=== PATIENT | female | born 1970 | race African-American/Black ===

== ENCOUNTER 2017-12-20 10:55 | Inpatient (IN) | payer OTHER ==
[2017-12-20 11:30] LABS: #Eosinphils 0.1 thou/uL (0.0-0.7); #Lymphocytes 2.7 thou/uL (1.20-3.40); #Monocytes 0.4 thou/uL (0.11-0.59); #Neutrophils 11.1 thou/uL (1.40-6.50); %Basophils 0.1 % (0.0-1.0); %Eosinophils 0.5 % (0.0-10.0); %Lymphocytes 19.1 % (21.0-51.0); %Monocytes 2.5 % (0.0-10.0); %Neutrophils 77.9 % (42.0-75.0); Hemoglobin 13.7 g/dL (12.0-16.0); Mean Corpuscular HGB CONC 32.6 g/dL (32.0-36.0); Mean Corpuscular Hemoglobin 30.4 pg (27.0-31.0); Mean Corpuscular Volume 93.1 fl (81.0-99.0); Mean Platelet Volume 7.3 fL (7.4-10.4); Platelet Count 355 thou/uL (130-400); RBC Distribution Width 11.8 % (11.5-14.5); White Blood Cell (WBC) Count 14.2 thou/uL (4.8-10.8)
[2017-12-20 11:54] LABS: Troponin I 0.015 ng/mL (< 0.028)
[2017-12-20 12:07] LABS: CKMB 7.8 ng/mL (0-6.6)
[2017-12-20 12:25] LABS: ALT (SGPT) 31 U/L (8-55); AST (SGOT) 34 U/L (5-34); Albumin 3.8 g/dL (3.5-5.0); Alkaline Phosphatase 91 U/L (40-150); Anion Gap 13 mmol/L (10-20); BUN (Urea Nitrogen) 9 mg/dL (7.0-18.7); Bilirubin, Total 0.3 mg/dL (0.2-1.2); Calc. Creatinine Clearance 0 mL/min (70-130); Calcium 9.5 mg/dL (7.8-10.44); Carbon Dioxide 25 mmol/L (22-29); Chloride 103 mmol/L (98-107); Estimated GFR-MDRD Greater than 90; Globulin 5.4 g/dL (2.4-3.5); Glucose 89 mg/dL (70-105); Potassium 3.9 mmol/L (3.5-5.1); Protein, Total 9.2 g/dL (6.0-8.3); Sodium 137 mmol/L (136-145)
--- NOTE | 2017-12-20 12:45 | RAD ---
RADIOGRAPH CHEST 2 VIEWS: Date: 12/20/17. Time: 11:49 a.m. HISTORY: A 47-year-old female with dyspnea, chest tightness, and cough. COMPARISON: None available. FINDINGS: There are reticular interstitial densities throughout the bilateral mid and lower lung zones. No ple ural effusion, consolidation, cardiomegaly, mediastinal widening, or pneumothorax. IMPRESSION: Bilateral pulmonary interstitial densities. It is uncertain whether this is chronic or acute. VANI [] POS: [facility]
--- NOTE | 2017-12-20 14:35 | CT ---
CTA THORAX WITH CONTRAST: (Computed Tomographic Angiography, chest(noncoronary) with contrast material, and image post processi ng) (PE protocol) DATE: 12/20/17. HISTORY: A 47-year-old female with 2 months of dyspnea, and recent chest pain. TECHNIQUE: IV injection of iodinated contrast: 100 mL of Isovue 370. Scan acquisition timing attempted to coincide with iodinated contrast bolus reaching maximal density in pulmonary arteries. 3D MIP reconstructions. FINDINGS: Trachea and major bronchi are patent and clear. A large number of enlarged bilateral axillary and venegas bpectoral lymph nodes. No pulmonary thromboembolism. No thoracic aortic aneurysm or dissection. No pleural effusion or pneumothorax. Bilateral subpleural reticular densities throughout the periphery of the bilateral upper lobes, bilateral lower lobes, right middle lobe, and lingula. No honeycombin g or bronchiectasis. This is greatest at the right base. Mild mediastinal lymphadenopathy. No sign ificant hilar lymphadenopathy. The adrenals, pancreas, and spleen are normal. There are a few bilat eral round 2-3 mm renal calculi. IMPRESSION: 1. No pulmonary thromboembolism. 2. Bilateral moderate interstitial infiltrates, with a slightly lower lung zone dominance, and subpl eural dominance right slightly greater than left. It is uncertain whether this represents chronic in terstitial lung disease or an acute or subacute interstitial lung disease. Chronic is favored (pulmo nary fibrosis). 3. Bilateral nephrolithiasis without obstructive uropathy. 4. Bilateral axillary and subpectoral lymphadenopathy, of unknown etiology. eduardo[] POS: [facility]
[2017-12-20] MEDS ORDERED: ISOVUE-370 76%-LOCM 1 ML ONE (15:20)
[2017-12-20] MEDS ORDERED: Ondansetron ODT 4 MG TAB ONE (15:57)
[2017-12-20] MEDS ORDERED: Acetaminophen 500 MG TAB ONE (15:57)
[2017-12-20] MEDS ORDERED: Azithromycin 500 MG VIAL ONE (16:21)
[2017-12-20] MEDS ORDERED: cefTRIAXone\\ROCEPHIN 2 GM VIAL ONE (16:21)
[2017-12-20 16:30] LABS: pH, Arterial 7.45 (7.35-7.45)
[2017-12-20 16:31] LABS: Actual Bicarbonate (HCO3a) 23.5 mEq/L (22-26); Base Excess (BEa) -0.1 mEq/L (0 (+/-) 2.5); CO2 Tension 34.8 mmHg (35.0-45.0); Hemoglobin (Hb) 12.3 g/dL (12.0-16.0); O2 Tension (PaO2) 61.1 mmHg (80.0-100.0)
[2017-12-20 16:32] LABS: Analyzer IN Cardio ER; Calcium, Ionized 1.2 mmol/L (1.12-1.30); Puncture Site LRA
[2017-12-20 16:44] LABS: Lactic Acid 1.5 mmol/L (0.5-2.2)
[2017-12-20] MEDS ORDERED: Piperacillin/Tazobactam 4.5 GM VIAL ONE (17:33)
[2017-12-20] MEDS ORDERED: Clindamycin/D5W 600 mg/50 ml Premix Bag ONE (17:33)
[2017-12-20] MEDS ORDERED: methylPREDNISolone Sod Succ/PF 125 MG/2 ML VIAL ONE (17:40)
[2017-12-20] MEDS ORDERED: HYDROcodone/Acetaminophen 5/325 mg Tablet PO PRN ×2 (18:05)
[2017-12-20] MEDS ORDERED: Acetaminophen 325 MG TAB PO PRN (18:05)
[2017-12-20] MEDS ORDERED: Ondansetron ODT 4 MG TAB SL PRN (18:05)
[2017-12-20] MEDS ORDERED: Ondansetron HCl/PF 4 MG/2 ML Vial IVP PRN (18:05)
[2017-12-20 18:12] VITALS: BMI 21.4
[2017-12-20] MEDS ORDERED: cefTRIAXone\\ROCEPHIN 1 GM in Sodium Chloride 0.9% 100 ML IVPB SCH (20:15)
[2017-12-20] MEDS ORDERED: predniSONE 20 MG TAB PO SCH (20:15)
[2017-12-20] MEDS: Famotidine 40 MG/4 ML VIAL SLOW IVP SCH (21:10)
[2017-12-20] MEDS ORDERED: HYDROcodone/Acetaminophen 5/325 mg Tablet PO SCH (23:00)
--- NOTE | 2017-12-21 01:54 | HP ---
CHIEF COMPLAINT: Shortness of breath. HISTORY OF PRESENT ILLNESS: This is a 47-year-old female with a known history of rheumatoid arthritis and lupus, who presents with a chief complaint of progressive shortness of breath over the last 2 months that has become acutely worse over the last 2-3 days. The patient states that she quit smoking approximately 4 months ago and then approximately 2 months ago, has been having some progressive difficulty with walking up stairs as when she notices that she has shortness of breath. However, in the last few days she has had even worsening shortness of breath with simple activity such as going to the bathroom. This has also been accompanied by frequent coughs that also contributing component of chest pressure and chest pain that has been ongoing for approximately the last week. REVIEW OF SYSTEMS: Constitutional: No recent weight changes that the patient is aware of. No fevers, no chills. HEENT: No new headaches, vision changes, lightheadedness or dizziness. Cardiovascular: Chest pain is described as a pressure, mostly anterior substernal without radiation. It is worse with coughing, but is present even without coughing, when she does cough, the patient also endorses sensations of diaphoresis and palpitations. Respiratory: Shortness of breath as described above, nonproductive cough. Gastrointestinal : Denies any nausea, vomiting, abdominal pain. Denies any issues with diarrhea or constipation. Genitourinary: Denies any dysuria, changes in urinary frequency, color, odor or quantity. Musculoskeletal: No new myalgias or arthralgias. No new issues with her rheumatoid arthritis or lupus. Otherwise, that the patient is aware of. Remainder of the review of systems otherwise negative. PAST MEDICAL HISTORY: As per above. 1. Rheumatoid arthritis. 2. Lupus. 3. The patient states the last time she required any medications for flare up, was approximately 9 months ago for her rheumatoid arthritis. In the past, she has used prednisone, she has used Plaquenil, but she has not used any of those medications within the last 9 months. PAST SURGICAL HISTORY: 1. Status post cholecystectomy 2. Status post hysterectomy for fibroids along with oophorectomy, bilateral. 3. Status post vein removal in her right upper extremity. The patient has a scar line extending from her right wrist to her elbow. She states because she had an IV that infiltrated became severe phlebitis with cellulitis and she had to have Vascular Surgery go in and remove the vein that is why she has that scar. HOME MEDICATIONS: The patient currently does not take any home medications beyond Mobic. ALLERGIES: Includes BUTORPHANOL, FISH CONTAINING PRODUCTS, TORADOL, MORPHINE, and MUSHROOM. FAMILY HISTORY: The patient denies any known family history of cardiovascular disease, pulmonary disease, lupus or rheumatoid arthritis. She thinks that maybe her grandmother might have had rheumatoid arthritis, but not as severe as hers. SOCIAL HISTORY: The patient is currently within the assisted system. Denies any alcohol, tobacco or illicit drug use. Endorses she wishes to be FULL CODE. PHYSICAL EXAMINATION: GENERAL: The patient is awake, alert, and appropriate, in no acute distress, seated in the hospital bed. HEENT: Normocephalic, atraumatic. Moist mucous membranes. Equal ocular motions are intact. Pupils are equal and reactive. No posterior oropharyngeal exudate or erythema. CARDIOVASCULAR: S1, S2. No overt murmurs, rubs or gallops. Pulses 2+ bilateral upper extremity, the patient does appear to have some component of tachycardia, but her rhythm appears to be regular at this point in time. RESPIRATORY: Reasonable air movement. No wheezes, rales or rhonchi, but she does have some perhaps faint crackles throughout. She has marginal air movement , somewhat diminished in her lung sounds. ABDOMEN: Positive bowel sounds, soft, nontender to palpation. NEUROLOGIC: Moving all 4 extremities. Able to self reposition the bed without difficulty or assistance. LABORATORY DATA AND IMAGING: WBC 14.2, hemoglobin 13.7, hematocrit 41.9, platelets 355. D-dimer 1.86. ABG indicates a pH of 7.45, pCO2 of 34.8, pO2 of 61.1. Sodium 137, potassium 3.9, chloride 103, bicarbonate 25, BUN 9, creatinine 0.76, glucose of 89, lactic acid of 1.5, calcium 9.5, total bilirubin 0.3, AST 34, ALT 31, alkaline phosphatase of 91, CK-MB 7.8, troponin 0.015. Total protein 9.2, albumin 3.8. On 12/20/2017, CTA of the chest and thorax. Impression: "No pulmonary thromboembolism. Bilateral moderate interstitial infiltrates with slightly lower lung zone dominance and subpleural dominance right slightly greater than left. It is uncertain whether this represents chronic interstitial lung disease or an acute or subacute interstitial lung disease. Chronic is favored (pulmonary fibrosis). Bilateral nephrolithiasis without obstructive uropathy. Bilateral axillary and subpectoral lymphadenopathy of unknown etiology." ASSESSMENT AND PLAN: This is a 47-year-old female who presents with a complaint of shortness of breath. 1. Shortness of breath with imaging findings concerning for fibrosis. This is certainly a possibility and the patient also presenting with leukocytosis. Unclear, if there is a fixed infectious etiology. She has blood cultures that are pending. We will try to obtain a sputum culture if that is at all possible. Unfortunately, the patient indicates that her cough is mostly nonproductive. Empiric ceftriaxone, empiric azithromycin. We will check a strep urine legionella as well. The patient states that she has been tested with a PPD for TB and this has been negative as the patient is currently in the assisted system. I suspect that this is accurate. DuoNebs and O2 support as needed. We will trial a low dose prednisone in case this is a component of lupus pneumonitis or otherwise related to her autoimmune diseases. 2. Leukocytosis with intermittent tachycardia, heart rate in the 90s. The patient is meeting criteria for systemic inflammatory response syndrome. See discussion above. The patient currently appears to be able to tolerate oral hydration. Could consider IV fluids, if the patient has any decrease in urine output. 3. Rheumatoid arthritis and lupus unless this is involving the lungs appears to be grossly otherwise stable. Admit the patient on an inpatient basis. We will consult Pulmonary. Admit the patient to telemetry. [facility]
[2017-12-21] MEDS ORDERED: Sodium Chloride 0.9% 1,000 ML IV SCH (06:00)
[2017-12-21 06:09] LABS: Anion Gap 10 mmol/L (10-20); BUN (Urea Nitrogen) 11 mg/dL (7.0-18.7); Calc. Creatinine Clearance 95 mL/min (70-130); Calcium 8.7 mg/dL (7.8-10.44); Carbon Dioxide 23 mmol/L (22-29); Chloride 108 mmol/L (98-107); Estimated GFR-MDRD Greater than 90; Glucose 157 mg/dL (70-105); Potassium 4.4 mmol/L (3.5-5.1); Sodium 137 mmol/L (136-145)
[2017-12-21 07:35] LABS: #Lymphocytes 1.7 thou/uL (1.20-3.40); #Monocytes 0.1 thou/uL (0.11-0.59); #Neutrophils 8.8 thou/uL (1.40-6.50); %Basophils 0.3 % (0.0-1.0); %Eosinophils 0.1 % (0.0-10.0); %Lymphocytes 16.1 % (21.0-51.0); %Monocytes 0.7 % (0.0-10.0); %Neutrophils 82.8 % (42.0-75.0); Band 8 % (5-11); Hemoglobin 11.2 g/dL (12.0-16.0); Lymphocytes 8 % (21-51); MDiff Complete? YES; Mean Corpuscular HGB CONC 32.7 g/dL (32.0-36.0); Mean Corpuscular Hemoglobin 30.2 pg (27.0-31.0); Mean Corpuscular Volume 92.3 fl (81.0-99.0); Mean Platelet Volume 7.8 fL (7.4-10.4); Neutrophil 84 % (42-75); Platelet Count 350 thou/uL (130-400); RBC Distribution Width 11.8 % (11.5-14.5); Red Blood Cell (RBC) Count 3.69 mill/uL (4.20-5.40); White Blood Cell (WBC) Count 10.6 thou/uL (4.8-10.8)
[2017-12-21] MEDS: Enoxaparin Sodium 30 MG/0.3 ML SYRINGE SC SCH (08:57)
[2017-12-21] MEDS: predniSONE 20 MG TAB PO SCH (08:57)
--- NOTE | 2017-12-21 09:26 | RAD ---
PORTABLE CHEST: DATE: 12/21/17. PROVIDED CLINICAL HISTORY: Dyspnea. FINDINGS: Comparison is made with the examination performed 12/20/17. Bilateral interstitial opacities are rede monstrated. Left subclavian central line has been placed, the tip of which projects in the region of the cavoatrial junction. No evidence for pneumothorax. IMPRESSION: Interval left-sided central line placement. POS: [facility]
[2017-12-21] MEDS ORDERED: Famotidine 20 MG TAB PO SCH ×2 (09:45→21:00)
[2017-12-21] MEDS ORDERED: Sodium Chloride 0.9% 500 ML IVPB SCH (10:00)
[2017-12-21] MEDS: Famotidine 40 MG/4 ML VIAL SLOW IVP SCH (10:12)
[2017-12-21] MEDS ORDERED: Meloxicam 7.5 MG TAB PO SCH (13:00)
--- NOTE | 2017-12-21 13:23 | PDOC.PN ---
- Subjective Encounter Start Date: 12/21/17 Encounter Start Time: 14:31 CC: fatigue Sub: Pt c/o fatigue - Objective Resuscitation Status: Resuscitation Status FULL:Full Resuscitation Vital Signs & Weight: Vital Signs (12 hours) Temp Pulse Resp BP Pulse Ox 12/21/17 11:58 98.2 F 96 18 100/57 L 97 12/21/17 08:16 97.6 F 77 20 114/65 93 L 12/21/17 04:09 97.9 F 86 18 87/57 L 95 Weight Weight 129 lb 1.6 oz Result Diagrams: 12/21/17 05:00 12/21/17 05:00 Phys Exam - Physical Examination Constitutional: NAD HEENT: moist MMs Neck: no JVD Respiratory: no wheezing, no rales, no rhonchi Cardiovascular: RRR, no significant murmur, no rub Gastrointestinal: soft, non-tender, positive bowel sounds no guarding, no rebound tenderness Musculoskeletal: no edema Neurological: non-focal, moves all 4 limbs Skin: no rash Dx/Plan - Plan Pt is 47 yrs old female now admitted to hospital due to dyspnea 1, Dyspnea: CXR no evidence of infiltrate continue empiric antibiotics 2. Abnormal cardiac enzymes: Will check cardiac enzymes Denies chest pain currently 3. H/O RA: Plan to continue mobic 7.5 mg bid Monitor ccreatinine closely 4. Leukocytosis: WBC count improving Repeat CBC in am Case d/w pt & RN
[2017-12-21 15:19] LABS: CKMB 5.4 ng/mL (0-6.6); Troponin I Less than 0.010 ng/mL (< 0.028)
[2017-12-21] MEDS ORDERED: cefTRIAXone\\ROCEPHIN 1 GM, Syringe 0.4 ML in Sterile Water 9.6 ML SLOW IVP SCH (16:00)
[2017-12-21] MEDS ORDERED: Azithromycin 500 MG in Sodium Chloride 0.9% 250 ML 250 ML IVPB SCH (17:00)
[2017-12-21] MEDS: Meloxicam 7.5 MG TAB PO SCH (20:54)
[2017-12-21] MEDS: Cefdinir 300 MG CAP PO SCH (20:54)
--- NOTE | 2017-12-21 21:09 | RAD ---
RIGHT HAND TWO VIEWS: History: Arthritis and Lupus. FINDINGS/IMPRESSION: Periarticular erosive changes are seen. No acute fracture or dislocation is identified. POS: [facility]
--- NOTE | 2017-12-21 21:12 | RAD ---
LEFT HAND TWO VIEWS: History: Arthritis and lupus. FINDINGS/IMPRESSION: No fracture, dislocation, bony destruction, osteophyte formation or erosive changes are seen. POS: [facility]
--- NOTE | 2017-12-21 21:58 | CON ---
DATE OF CONSULTATION: 12/21/2017 SERVICE: Pulmonary Medicine. REASON FOR CONSULTATION: Abnormal CT of the chest. HISTORY OF PRESENT ILLNESS: The patient is a 47-year-old -[place] female with past medical history significant for systemic lupus erythematosus. She was in her usual state of health with arthralgias that come and go from time to time up until about 3 months ago. She had lower extremity swelling that came on and went away without explanation. She thought it was because she was walking upstairs. She stopped walking upstairs and swelling seemed to dissipate. Either way, she returned to usual state of health with intermittent arthralgias that she was taking Mobic for. She then developed onset of cough, shortness of breath that was slowly progressive over the past 3 weeks. She got to the point where she could not lie down flat and was waking up coughing, choking and gasping in the middle of the night. She has to sit on the side of the bed in order to breathe for a period of 30 minutes, if not longer. She presented to the emergency department. Initial diagnostic studies were performed. There was a fear for pulmonary embolism, prompting a CT PE protocol. This showed interstitial lung infiltrates throughout the periphery of the bilateral lungs. She has some pleuritic chest discomfort, but otherwise has no nausea, vomiting, diarrhea or malaise. She does have arthralgias which predominantly affect the MCPs, PIPs, and wrist. It also involves bilateral knees and intermittently the ankles. Her hips and shoulders certainly are spared. PAST MEDICAL HISTORY: 1. Systemic lupus erythematosus, not currently on disease modifying therapy. 2. Rheumatoid arthritis. PAST SURGICAL HISTORY: 1. Cholecystectomy. 2. Hysterectomy secondary to fibroids with bilateral oophorectomy. 3. Right upper extremity excision of vein. FAMILY HISTORY: She is currently incarcerated. She is in minimum security facility. SOCIAL HISTORY: She denies any current alcohol, tobacco or illicit drug use. She has no exposure to chemicals, dust asbestos or tuberculosis. FAMILY HISTORY: Noncontributory. ALLERGIES: BUTORPHANOL, FISH, TORADOL, MORPHINE, MUSHROOM. MEDICATIONS: List of her inpatient medications was reviewed. A couple of small updates were made. REVIEW OF SYSTEMS: General, head, ears, eyes, nose, throat, cardiovascular, respiratory, GI, , musculoskeletal, neurologic and skin is negative except as mentioned in the HPI. PHYSICAL EXAMINATION: VITAL SIGNS: Afebrile, pulse 96, blood pressure 100/57, respirations 18, saturation 97% on room air. GENERAL: The patient awake, alert, no apparent distress. LUNGS: Bilateral crackles are present. These are fairly extensive. ABDOMEN: Soft, nontender, and nondistended. Bowel sounds are positive. MUSCULOSKELETAL: No cyanosis or clubbing. There is no pitting in the bilateral lower extremities. NEUROLOGIC: Grossly nonfocal. She has diffuse arthralgias present with synovitis. LABORATORY DATA: WBC 10.6, hemoglobin 11.2, platelets 350,000. Neutrophil count is increasing to 83%. D-dimer 1.86. A pH 7.45, pCO2 of 34, PO2 of 61 on room air. Basic metabolic profile and liver function studies were unremarkable. BNP is less than the assay limit of 10. Cardiac enzymes are negative x1. IMAGIN. Chest x-ray demonstrates interstitial changes. There is a left-sided subclavian central venous catheter which terminates in excellent position. 2. CT PE protocol demonstrates no evidence of PE. There is diffuse interstitial fullness throughout the periphery of bilateral lungs. It is more severe in the bibasilar region. There is no honeycombing at this point. Otherwise, I do not see any acute pulmonary process. There is a possible pericardial effusion present. ASSESSMENT: 1. Interstitial lung disease, suspected. 2. Systemic lupus erythematosus. 3. Rheumatoid arthritis. PLAN: We are going to get serologies including an RAS profile, rheumatoid factor, anti-Matilde-1 antibodies, IgG4 subclasses. Antibiotics will be converted over to a p.o. medication. We will limit her to a 5-day course. I really do not think infectious issue is occurring here. We need to continue her prednisone for the supervisor intermediates. She can go out of the hospital on 40 mg of p.o. prednisone on a daily basis. She will need to follow up with me in the outpatient setting, so that we can arrange for her to have pulmonary function studies. Furthermore, she is going to certainly need to see Rheumatology in the outpatient setting, so that she can be started on disease modifying therapy. I will check urinalysis to make certain she does not have significant hematuria. Pulmonary or Critical Care will continue to follow while she remains in this location. Once her chest discomfort starts to neville, she can be considered for transition home. I will get a hand x-rays looking for erosions which would be consistent with rheumatoid arthritis. 70 minutes have been devoted to this patient in various activities. I personally reviewed all imaging studies and laboratory data noted within this document. For fifty percent of this time, I was interacting with the patient at the bedside or coordinating care with the care team. For the remainder of the time I was immediately available to the patient in the hospital unit. [facility]
[2017-12-22 05:37] LABS: #Basophils 0.1 thou/uL (0.0-0.2); #Lymphocytes 2.8 thou/uL (1.20-3.40); #Monocytes 0.7 thou/uL (0.11-0.59); #Neutrophils 14.2 thou/uL (1.40-6.50); %Basophils 0.3 % (0.0-1.0); %Eosinophils 0.1 % (0.0-10.0); %Lymphocytes 15.8 % (21.0-51.0); %Neutrophils 79.7 % (42.0-75.0); Hemoglobin 10.2 g/dL (12.0-16.0); Mean Corpuscular HGB CONC 31.6 g/dL (32.0-36.0); Mean Corpuscular Hemoglobin 29.8 pg (27.0-31.0); Mean Corpuscular Volume 94.2 fl (81.0-99.0); Mean Platelet Volume 7.7 fL (7.4-10.4); Platelet Count 323 thou/uL (130-400); RBC Distribution Width 11.7 % (11.5-14.5); Red Blood Cell (RBC) Count 3.44 mill/uL (4.20-5.40); White Blood Cell (WBC) Count 17.8 thou/uL (4.8-10.8)
[2017-12-22 06:05] LABS: Anion Gap 9 mmol/L (10-20); BUN (Urea Nitrogen) 13 mg/dL (7.0-18.7); Calc. Creatinine Clearance 104 mL/min (70-130); Calcium 8.4 mg/dL (7.8-10.44); Carbon Dioxide 23 mmol/L (22-29); Chloride 111 mmol/L (98-107); Estimated GFR-MDRD Greater than 90; Glucose 102 mg/dL (70-105); Potassium 4.1 mmol/L (3.5-5.1); Sodium 139 mmol/L (136-145)
[2017-12-22] MEDS: predniSONE 20 MG TAB PO SCH (08:55)
[2017-12-22] MEDS: Cefdinir 300 MG CAP PO SCH ×2 (08:56→20:15)
[2017-12-22] MEDS: Meloxicam 7.5 MG TAB PO SCH ×2 (08:56→20:15)
[2017-12-22] MEDS: Furosemide 20 MG TAB PO SCH (08:56)
[2017-12-22] MEDS: Ferrous Gluconate 324 MG TAB PO SCH (08:57)
[2017-12-22] MEDS: Azithromycin 250 MG TAB PO SCH (08:58)
[2017-12-22] MEDS: Enoxaparin Sodium 30 MG/0.3 ML SYRINGE SC SCH (09:01)
[2017-12-22 12:54] LABS: EliA RAS New Method **** NEW METHOD ****; Jo-1 IgG Antibody Less than 0.3 EliAU/mL (<7 Negative)
--- NOTE | 2017-12-22 14:19 | PDOC.PN ---
- Subjective Encounter Start Date: 12/22/17 Encounter Start Time: 14:00 Subjective: f/u for cough and dyspnea and suspected interstitial lung disease of SLE -: on Prednisone, Omnicef and Zithromax. Some improvement in cough -: but SOB when ambulating. No fever, chills. - Objective Resuscitation Status: Resuscitation Status FULL:Full Resuscitation MAR Reviewed: Yes Vital Signs & Weight: Vital Signs (12 hours) Temp Pulse Resp BP Pulse Ox 12/22/17 12:00 84 18 97/59 L 98 12/22/17 11:03 99 12/22/17 08:51 98.5 F 85 18 102/55 L 99 12/22/17 08:00 98.5 F 85 18 99 12/22/17 04:00 98.3 F 70 18 95/54 L 95 Weight Weight 131 lb 14.4 oz I&O: 12/21/17 12/22/17 12/23/17 06:59 06:59 06:59 Intake Total 980 Balance 980 Result Diagrams: 12/22/17 05:13 12/22/17 05:13 Additional Labs: Laboratory Tests 12/22/17 05:13 Rheumatoid Factor IgA 34.0 H Rheumatoid Factor IgM 103.0 H Cycl Citrul Peptide IgG 1.0 JANET-1 IgG Antibody Less than 0.3 Radiology Reviewed by me: Yes (2D echo - EF 55%, diast dysfxn) EKG Reviewed by me: Yes (Tele - SR) Phys Exam - Physical Examination Constitutional: NAD HEENT: PERRLA, moist MMs, sclera anicteric, oral pharynx no lesions Neck: no nodes, no JVD, supple exp wheezes good airflow otherwise in bases Respiratory: no rales, no rhonchi S1, S2 Cardiovascular: RRR, no significant murmur, no rub, gallop Gastrointestinal: soft, non-tender, no distention, positive bowel sounds Musculoskeletal: no edema, pulses present Neurological: non-focal, normal sensation, moves all 4 limbs Psychiatric: normal affect, A&O x 3 Skin: no rash, normal turgor, cap refill <2 seconds Dx/Plan (1) Dyspnea Code(s): R06.00 - DYSPNEA, UNSPECIFIED Status: Acute Qualifiers: Dyspnea type: dyspnea on exertion Qualified Code(s): R06.09 - Other forms of dyspnea Comment: Likely due to ILD of SLE, continue Prednisone 40mg daily (2) Interstitial lung disease Code(s): J84.9 - INTERSTITIAL PULMONARY DISEASE, UNSPECIFIED Status: Acute Comment: Continue Prednisone, will continue outpt work up including PFT's, add ProAir HFA 2puffs QID (3) SLE (systemic lupus erythematosus) Code(s): M32.9 - SYSTEMIC LUPUS ERYTHEMATOSUS, UNSPECIFIED Status: Chronic Comment: See above for mgmt, outpt for fpc mgmt (4) Rheumatoid arthritis Code(s): M06.9 - RHEUMATOID ARTHRITIS, UNSPECIFIED Status: Chronic Qualifiers: Rheumatoid arthritis location: hand Laterality: right Comment: continue Prednisone 40mg daily, Mobic 7.5mg BID - Plan continue antibiotics, executive secretary social welfare, out of bed/ambulate, DVT proph w/SCDs Stable overall -: Continue Prednisone 40mg po daily -: Add Albuterol MDI 2puffs q6h -: Continue Mobic 7.5mg BID -: OOB/ambulate * Continue Omnicef 300mg BID * AM lab: BMP, CBC
--- NOTE | 2017-12-22 16:11 | PRG ---
DATE OF SERVICE: 12/22/2017 SERVICE: Pulmonary medicine. INTERVAL HISTORY: The patient is doing fine from a cardiovascular and respiratory standpoint. Her arthralgias are much better. That being said, she continues to have dyspnea with exertion. This truthfully is unexpected. Typically with steroids, it takes a couple of days, if not weeks for the difficulty breathing to get better. Otherwise, there have been no interval events. PHYSICAL EXAMINATION: VITAL SIGNS: Afebrile, pulse 84, blood pressure 102/55, respirations 18, saturation 98% on room air. GENERAL: The patient is awake and alert. No apparent distress. LUNGS: Excellent air entry with no prolonged expiratory phase or wheezing. Crackles are present throughout bilateral lung cruz. HEART: Normal rate and regular. ABDOMEN: Soft, nontender, nondistended. Bowel sounds positive. MUSCULOSKELETAL: No cyanosis or clubbing. There is no pitting in the bilateral lower extremities. NEUROLOGIC: Grossly nonfocal. LABORATORY DATA: WBC 17.8, hemoglobin 10.2, and platelets 323,000. Neutrophil count is 79%. Basic metabolic profile is essentially unremarkable. Troponin 0.01 and down trending. Rheumatoid factor is elevated, unremarkable. RAS profile and other studies are currently pending. IMAGIN. Echocardiogram demonstrates diastolic dysfunction with a normal ejection fraction. No significant pericardial effusion is evident. 2. Hand x-rays demonstrate bony erosions consistent with inflammatory arthritis. ASSESSMENT: 1. Systemic lupus erythematosus. 2. Rheumatoid arthritis. 3. Interstitial lung disease. 4. Chronic hypoxic respiratory failure, suspected. 5. Community acquired pneumonia, unlikely. PLAN: Antibiotics can be discontinued after 5 days. We will continue steroids indefinitely. At this point, she will need to be discharged from the hospital on 40 mg of steroids on a daily basis. She will need to sleep on a wedge for the rest of her life and we will need a prescription for this on discharge from the hospital. She will need to follow up with Rheumatology just as soon as possible. I would recommend that she see Dr. Garza at [facility]. She is in desperate need of disease modifying therapy for both rheumatoid arthritis and systemic lupus erythematosus. I would like for her to follow up with me in the outpatient setting, so that we can get pulmonary function studies, to follow stability of her lung process through time. [facility]
[2017-12-22] MEDS ORDERED: Fentanyl 100 MCG/2 ML VIAL SLOW IVP PRN (18:29)
[2017-12-22] MEDS ORDERED: Fentanyl 100 MCG/2 ML VIAL SLOW IVP SCH (18:30)
[2017-12-22] MEDS: Sodium Chloride 0.9% 1,000 ML IV SCH (18:41)
[2017-12-22 18:42] LABS: Bilirubin Negative (Negative); Blood, Urine Negative (Negative); Clarity CLEAR (Clear); Glucose, Urine (Dipstick) Negative (Negative); Leukocyte Negative (Negative); Nitrite Negative (Negative); Protein, Urine (Dipstick) Negative (Neg-Trace); Specific Gravity, Urine 1.017 (1.002-1.036); Urobilinogen 0.2 mg/dL (0.2-1.0)
[2017-12-22 18:45] LABS: Bacteria/HPF None Seen HPF (None Seen); Hyaline Casts/LPF 0-3 HYALINE CAST LPF (0-3 Hyaline); Pathc Cast-AUWi Flag 0.14 (0-2.49); RBC/HPF 0-3 HPF (0-3); Squamous Epithelial 0-3 HPF (0-3); WBC/HPF None Seen HPF (0-3)
[2017-12-22] MEDS: PROVENTIL INHALER 6.7 G (200 INHALATIONS) INH SCH (19:56)
[2017-12-22] MEDS ORDERED: Promethazine HCl 25 MG in Sodium Chloride 0.9% 50 ML IVPB SCH (20:30)
--- NOTE | 2017-12-22 22:34 | CT ---
CT ABDOMEN AND PELVIS WITHOUT CONTRAST: 12/22/2017 HISTORY: Right-sided flank pain. Assess for obstructive uropathy. COMPARISON: None. TECHNIQUE: Serial axial CT imaging obtained at 5 mm intervals, from the lung bases through the pubic symphysis, without contrast. Coronal reformatted imaging obtained. FINDINGS: The lack of contrast media limits assessment of the viscera, bowel, and vascular structures and for l ymphadenopathy. Increased coarse linear interstitial densities are noted peripherally, within both lung bases. No free intraperitoneal air, or fluid noted. Post cholecystectomy clips are present. The liver, spleen, pancreas, and adrenal glands are unremarkable. There are bilateral intrarenal calculi. On the left, there are at least five nonobstructing intraren al calculi, measuring up to 3 mm. There is a mid pole, nonobstructing, right renal stone, measuring 4 mm. There is no hydronephrosis s een on either side. There are two calcifications along the course of the right ureter, anterior to the right psoas muscle , best seen on axial image 55, significance uncertain. The medial of these two calcifications demons trate central lucency, suggesting phlebolith. Lateral of these two calcifications measures up to 4 m m and could be within the ureter. However, this could also be vascular in nature, as there is no kemi dence for hydroureter or hydronephrosis. If there is high clinical concern for obstructive uropathy on the right, follow-up imaging with contrast, using a CT urogram, is recommended. Limited evaluation of the bowel demonstrates prominent stool throughout the colon. Punctate foci of subcutaneous gas noted within the fat of the anterior abdomen, on the right, suggesting subcutaneous injections. IMPRESSION: Bilateral intrarenal calculi, left more numerous than right. No hydronephrosis or hydroureter. Calc ification seen along the course of the mid right ureter, which is difficult to accurately locate but is probably vascular in nature, given lack of hydronephrosis/hydroureteronephrosis). Of there is hig h clinical concern for obstructive uropathy, however, CT urogram is advised for full assessment. POS: [facility]
[2017-12-23] MEDS: PROVENTIL INHALER 6.7 G (200 INHALATIONS) INH SCH ×4 (00:58→19:32)
[2017-12-23 05:55] LABS: #Basophils 0.1 thou/uL (0.0-0.2); #Lymphocytes 3.5 thou/uL (1.20-3.40); #Monocytes 0.8 thou/uL (0.11-0.59); #Neutrophils 9.6 thou/uL (1.40-6.50); %Basophils 0.4 % (0.0-1.0); %Eosinophils 0.2 % (0.0-10.0); %Lymphocytes 24.8 % (21.0-51.0); %Monocytes 5.7 % (0.0-10.0); %Neutrophils 68.9 % (42.0-75.0); Hemoglobin 10.3 g/dL (12.0-16.0); Mean Corpuscular HGB CONC 31.6 g/dL (32.0-36.0); Mean Corpuscular Hemoglobin 29.8 pg (27.0-31.0); Mean Corpuscular Volume 94.3 fl (81.0-99.0); Mean Platelet Volume 7.4 fL (7.4-10.4); Platelet Count 315 thou/uL (130-400); RBC Distribution Width 11.7 % (11.5-14.5); Red Blood Cell (RBC) Count 3.47 mill/uL (4.20-5.40)
[2017-12-23] MEDS: Sodium Chloride 0.9% 1,000 ML IV SCH ×3 (06:11→12:20)
[2017-12-23 06:28] LABS: Anion Gap 10 mmol/L (10-20); BUN (Urea Nitrogen) 14 mg/dL (7.0-18.7); Calc. Creatinine Clearance 109 mL/min (70-130); Calcium 7.9 mg/dL (7.8-10.44); Carbon Dioxide 19 mmol/L (22-29); Chloride 115 mmol/L (98-107); Estimated GFR-MDRD Greater than 90; Glucose 82 mg/dL (70-105); Potassium 4.1 mmol/L (3.5-5.1); Sodium 140 mmol/L (136-145)
[2017-12-23] MEDS: Furosemide 20 MG TAB PO SCH (08:20)
[2017-12-23] MEDS: Cefdinir 300 MG CAP PO SCH ×2 (08:21→20:07)
[2017-12-23] MEDS: predniSONE 20 MG TAB PO SCH (08:21)
[2017-12-23] MEDS: Ferrous Gluconate 324 MG TAB PO SCH (08:21)
[2017-12-23] MEDS: Meloxicam 7.5 MG TAB PO SCH ×2 (08:21→20:07)
[2017-12-23] MEDS: Azithromycin 250 MG TAB PO SCH (08:21)
[2017-12-23] MEDS: Enoxaparin Sodium 30 MG/0.3 ML SYRINGE SC SCH (08:22)
[2017-12-23] MEDS ORDERED: Acetaminophen 500 MG TAB PO PRN (11:05)
--- NOTE | 2017-12-23 16:23 | PRG ---
DATE OF SERVICE: 12/23/2017 SERVICE: Pulmonary Medicine. INTERVAL HISTORY: The patient is doing fine from a respiratory standpoint. She continues to cough a little bit. It seems that dyspnea is easing up ever so slightly. Otherwise, there has been no grimm ge to her condition. PHYSICAL EXAMINATION: VITAL SIGNS: Afebrile, pulse 87, blood pressure 94/51, respirations 16, saturation 96% on room air. GENERAL: The patient is awake and alert, in no apparent distress. LUNGS: Bilateral crackles are present. No prolonged expiratory phase or wheezing. HEART: Normal rate and regular. ABDOMEN: Soft, nontender, nondistended. Bowel sounds are positive. MUSCULOSKELETAL: No cyanosis or clubbing. No pitting in the bilateral lower extremities. NEUROLOGIC: Grossly nonfocal. LABORATORY DATA: WBC 14.0, hemoglobin 10.3, and platelets 315,000. Chloride 115, sodium 140. Basic metabolic profile is otherwise unremarkable. ASSESSMENT: 1. Systemic lupus erythematosus. 2. Rheumatoid arthritis. 3. Interstitial lung disease. 4. Chronic hypoxic respiratory failure, suspected. 5. Community-acquired pneumonia, unlikely. PLAN: We will stop her antibiotics after 5 days. The steroids will be continued on discharge from [facility] at 40 mg, indefinitely until she can get in with Rheumatology and get on disease modifyin g therapy. I have return to clinic to see me in 2-4 weeks in the outpatient setting, so that we can establish baseline pulmonary function studies on her. We will be able to follow this through time to see whether or not she progresses. If she does, an open lung biopsy would be indicated. Pulmonary or Critical Care will continue to follow along for the time being.
--- NOTE | 2017-12-23 18:26 | PDOC.PN ---
- Subjective Encounter Start Date: 12/23/17 Encounter Start Time: 18:20 Subjective: f/u dyspnea and cough suspected ILD of SLE on Prednisone, Omnicef -: and Zithromax. Ambulated in halls with some dyspnea. Appetite good. -: Voiding regularly. - Objective Resuscitation Status: Resuscitation Status FULL:Full Resuscitation MAR Reviewed: Yes Vital Signs & Weight: Vital Signs (12 hours) Temp Pulse Resp BP Pulse Ox 12/23/17 17:30 98.3 F 86 17 112/63 97 12/23/17 12:24 76 12 12/23/17 12:18 98.5 F 87 16 94/51 L 96 12/23/17 08:15 98.2 F 73 16 106/65 97 12/23/17 07:31 97 12/23/17 07:29 72 12 Weight Weight 131 lb 11.2 oz I&O: 12/22/17 12/23/17 12/24/17 06:59 06:59 06:59 Intake Total 980 1250 2198 Output Total 550 400 Balance 686 102 2592 Result Diagrams: 12/23/17 05:45 12/23/17 05:45 Additional Labs: Laboratory Tests 12/22/17 12/22/17 05:13 05:13 WBC 17.8 H Hgb 10.2 L Neutrophils % 79.7 H Rheumatoid Factor IgA 34.0 H Rheumatoid Factor IgM 103.0 H Cycl Citrul Peptide IgG 1.0 JANET-1 IgG Antibody Less than 0.3 Radiology Reviewed by me: Yes (CT abd - bilat renal calculi, no obstruction or hydronephrosis) EKG Reviewed by me: Yes (Tele - SR) Phys Exam - Physical Examination Constitutional: NAD alert, responsive HEENT: PERRLA, moist MMs, sclera anicteric, oral pharynx no lesions Neck: no nodes, no JVD, supple scattered rhonchi Respiratory: no rales S1, S2 Cardiovascular: RRR, no significant murmur, no rub, gallop Gastrointestinal: soft, non-tender, no distention, positive bowel sounds Musculoskeletal: no edema, pulses present Neurological: non-focal, normal sensation, moves all 4 limbs Psychiatric: normal affect, A&O x 3 Skin: no rash, normal turgor, cap refill <2 seconds Dx/Plan (1) Dyspnea Code(s): R06.00 - DYSPNEA, UNSPECIFIED Status: Acute Qualifiers: Dyspnea type: dyspnea on exertion Qualified Code(s): R06.09 - Other forms of dyspnea Comment: Likely due to ILD of SLE, continue Prednisone 40mg daily, Albuterol nebs (2) Interstitial lung disease Code(s): J84.9 - INTERSTITIAL PULMONARY DISEASE, UNSPECIFIED Status: Acute Comment: Continue Prednisone, will continue outpt work up including PFT's, add ProAir HFA 2puffs QID (3) SLE (systemic lupus erythematosus) Code(s): M32.9 - SYSTEMIC LUPUS ERYTHEMATOSUS, UNSPECIFIED Status: Chronic Comment: See above for mgmt, outpt for long-term mgmt (4) Rheumatoid arthritis Code(s): M06.9 - RHEUMATOID ARTHRITIS, UNSPECIFIED Status: Chronic Qualifiers: Rheumatoid arthritis location: hand Laterality: right Comment: continue Prednisone 40mg daily, Mobic 7.5mg BID - Plan continue antibiotics, PT/OT, director of social services, out of bed/ambulate, DVT proph w/ SCDs Stable overall -: Continue Prednisone 40mg po daily -: Continue Omnicef and Zithromax -: Continue Mobic 7.5mg BID -: Likely d/c in 24-48h * AM lab: CBC
[2017-12-24] MEDS: PROVENTIL INHALER 6.7 G (200 INHALATIONS) INH SCH ×4 (01:25→18:53)
[2017-12-24 05:57] LABS: Hemoglobin 10.4 g/dL (12.0-16.0); Lymphocytes 34 % (21-51); MDiff Complete? YES; Mean Corpuscular HGB CONC 32.5 g/dL (32.0-36.0); Mean Corpuscular Hemoglobin 30.4 pg (27.0-31.0); Mean Corpuscular Volume 93.7 fl (81.0-99.0); Mean Platelet Volume 7.7 fL (7.4-10.4); Monocytes 5 % (0-10); Neutrophil 61 % (42-75); Platelet Count 323 thou/uL (130-400); RBC Distribution Width 11.8 % (11.5-14.5); Red Blood Cell (RBC) Count 3.42 mill/uL (4.20-5.40); White Blood Cell (WBC) Count 12.9 thou/uL (4.8-10.8)
[2017-12-24] MEDS: Enoxaparin Sodium 30 MG/0.3 ML SYRINGE SC SCH (07:53)
[2017-12-24] MEDS: Cefdinir 300 MG CAP PO SCH ×2 (07:54→20:49)
[2017-12-24] MEDS: Azithromycin 250 MG TAB PO SCH (07:54)
[2017-12-24] MEDS: Furosemide 20 MG TAB PO SCH (07:54)
[2017-12-24] MEDS: Meloxicam 7.5 MG TAB PO SCH ×2 (07:54→20:49)
[2017-12-24] MEDS: predniSONE 20 MG TAB PO SCH (07:54)
[2017-12-24] MEDS: Ferrous Gluconate 324 MG TAB PO SCH (07:55)
[2017-12-24] MEDS: diphenhydrAMINE 50 MG/ML VIAL IVP PRN (09:14)
[2017-12-24] MEDS: Famotidine 40 MG/4 ML VIAL SLOW IVP SCH ×2 (09:39→20:47)
[2017-12-24 14:28] LABS: IgG Subclass 1 1086 mg/dL (248-810); IgG Subclass 2 268 mg/dL (130-555); IgG Subclass 3 156 mg/dL (15-102); IgG Subclass 4 58 mg/dL (2-96); Immunoglobulin - G (Sendout) 1481 mg/dL (700-1600)
--- NOTE | 2017-12-24 18:12 | PDOC.PN ---
- Subjective Encounter Start Date: 12/24/17 Encounter Start Time: 18:10 Subjective: f/u for dyspnea and cough suspected ILD in context of SLE on Omnicef -: and Prednisone. Less SOB today and minimal cough. Had allergic rxn -: this am but resolved quickly with Benadryl. - Objective Resuscitation Status: Resuscitation Status FULL:Full Resuscitation MAR Reviewed: Yes Vital Signs & Weight: Vital Signs (12 hours) Temp Pulse Resp BP Pulse Ox 12/24/17 16:39 98.2 F 82 15 100/59 L 96 12/24/17 12:28 98.3 F 91 16 103/57 L 95 12/24/17 12:09 106 H 16 99 12/24/17 07:51 98.2 F 82 15 111/66 96 12/24/17 06:50 69 16 97 Weight Weight 135 lb I&O: 12/23/17 12/24/17 12/25/17 06:59 06:59 06:59 Intake Total 1250 2198 Output Total 550 400 Balance 700 1798 Result Diagrams: 12/24/17 04:25 12/23/17 05:45 Additional Labs: Laboratory Tests 12/22/17 12/22/17 05:13 05:13 WBC 17.8 H Hgb 10.2 L Neutrophils % 79.7 H Rheumatoid Factor IgA 34.0 H Rheumatoid Factor IgM 103.0 H Cycl Citrul Peptide IgG 1.0 JANET-1 IgG Antibody Less than 0.3 EKG Reviewed by me: Yes (Tele - SR) Phys Exam - Physical Examination Constitutional: NAD HEENT: PERRLA, moist MMs, sclera anicteric, oral pharynx no lesions Neck: no nodes, no JVD, supple Respiratory: no wheezing, no rales, no rhonchi, clear to auscultation bilateral S1, S2 Cardiovascular: RRR, no significant murmur, no rub, gallop Gastrointestinal: soft, non-tender, no distention, positive bowel sounds Musculoskeletal: no edema, pulses present Neurological: non-focal, normal sensation, moves all 4 limbs Psychiatric: normal affect, A&O x 3 Skin: no rash, normal turgor, cap refill <2 seconds Dx/Plan (1) Dyspnea Code(s): R06.00 - DYSPNEA, UNSPECIFIED Status: Acute Qualifiers: Dyspnea type: dyspnea on exertion Qualified Code(s): R06.09 - Other forms of dyspnea Comment: Likely due to ILD of SLE, continue Prednisone 40mg daily, Albuterol nebs (2) Interstitial lung disease Code(s): J84.9 - INTERSTITIAL PULMONARY DISEASE, UNSPECIFIED Status: Acute Comment: Continue Prednisone, will continue outpt work up including PFT's, add ProAir HFA 2puffs QID (3) SLE (systemic lupus erythematosus) Code(s): M32.9 - SYSTEMIC LUPUS ERYTHEMATOSUS, UNSPECIFIED Status: Chronic Comment: See above for mgmt, outpt for [facility] mgmt (4) Rheumatoid arthritis Code(s): M06.9 - RHEUMATOID ARTHRITIS, UNSPECIFIED Status: Chronic Qualifiers: Rheumatoid arthritis location: hand Laterality: right Comment: continue Prednisone 40mg daily, Mobic 7.5mg BID - Plan continue antibiotics, social studies department chair, out of bed/ambulate, DVT proph w/SCDs Stable overall -: Continue Omnicef 300mg dialy -: Continue Prednisone 40mg daily -: OOB/ambulate -: D/C Lasix * Likely d/c in am * AM lab: CBC
[2017-12-24] MEDS ORDERED: traMADol HCl 50 MG TAB PO SCH (22:15)
[2017-12-25] MEDS: PROVENTIL INHALER 6.7 G (200 INHALATIONS) INH SCH ×3 (00:55→13:20)
[2017-12-25] MEDS ORDERED: Melatonin 3 MG TAB PO SCH (02:00)
[2017-12-25] MEDS: diphenhydrAMINE 50 MG/ML VIAL IVP PRN ×2 (03:47→10:19)
[2017-12-25 05:36] LABS: Band 4 % (5-11); Hemoglobin 11.4 g/dL (12.0-16.0); Lymphocytes 36 % (21-51); MDiff Complete? YES; Mean Corpuscular HGB CONC 31.5 g/dL (32.0-36.0); Mean Corpuscular Hemoglobin 29.6 pg (27.0-31.0); Mean Corpuscular Volume 93.9 fl (81.0-99.0); Mean Platelet Volume 7.8 fL (7.4-10.4); Monocytes 2 % (0-10); Neutrophil 58 % (42-75); PLT Morphology Comment Appears Adequate; Platelet Count 346 thou/uL (130-400); RBC Distribution Width 11.9 % (11.5-14.5); Red Blood Cell (RBC) Count 3.86 mill/uL (4.20-5.40); White Blood Cell (WBC) Count 14.4 thou/uL (4.8-10.8)
[2017-12-25] MEDS: Meloxicam 7.5 MG TAB PO SCH (08:45)
[2017-12-25] MEDS: predniSONE 20 MG TAB PO SCH (08:45)
[2017-12-25] MEDS: Cefdinir 300 MG CAP PO SCH (08:45)
[2017-12-25] MEDS: Ferrous Gluconate 324 MG TAB PO SCH (08:45)
[2017-12-25] MEDS: Famotidine 40 MG/4 ML VIAL SLOW IVP SCH (10:17)
--- NOTE | 2017-12-25 11:09 | DIS ---
DATE OF ADMISSION: 12/20/2017 DATE OF DISCHARGE: 12/25/2017 DISCHARGE DIAGNOSES: 1. Dyspnea, multifactorial, improved. 2. Interstitial lung disease, suspected, questionable secondary to systemic lupus erythematosus. 3. Systemic lupus erythematosus. 4. Rheumatoid arthritis. CONSULTATIONS: Dr. Nieves with Pulmonology Service. PERTINENT LABORATORY DATA AND X-RAY FINDINGS: Basic metabolic profile within normal limits. LFTs wi thin normal limits. BNP less than 10. Albumin 3.8. CBC showed a white blood cell count ranging bet ween 10.6-17.8, hemoglobin ranged between 10.2-13.7. Rheumatoid factor IgA 34. Rheumatoid factor Ig M 103. RAS screen pending. Portable chest x-ray dated 12/20/2017 showed bilateral pulmonary interst itial changes. CT angiogram of the chest dated 12/20/2017 showed no evidence for pulmonary embolus. Bilateral interstitial infiltrates with lower lung zone predominance. Question of chronic interstit ial lung disease. Bilateral nephrolithiasis without obstructive uropathy. Portable chest x-ray date d 12/21/2017 showed interval left-sided central line catheter placement. Two views of the right hand dated 12/21/2017 showed periarticular erosive changes consistent with rheumatoid arthritis. A 2D tr ansthoracic echocardiogram dated 12/21/2017 showed ejection fraction of 50%-55%. Diastolic dysfuncti on. CT of the abdomen and pelvis dated 12/22/2017 showed bilateral intrarenal calculi, left greater than right. No associated hydronephrosis or hydroureter. HOSPITAL COURSE: Patient was admitted to the telemetry unit after initially presenting with progress traci shortness of breath in the context of systemic lupus erythematosus and rheumatoid arthritis. [facility] imaging showed interstitial changes, questionable acute/subacute versus chronic changes. The terry ent was initially empirically managed with IV Rocephin and Zithromax as well as prednisone. The terry ent was evaluated by the Pulmonology Service due to the radiographic changes noted on lung imaging. The patient underwent evaluation including RAS profile and rheumatoid factor with positive rheumatoid factor as stated previously. The patient continued on prednisone 40 mg daily with recommendations t o continue indefinitely until consideration for rheumatological follow up in the outpatient setting w ith potential disease modifying therapy. The patient was slow to clinically improve and was placed o n bronchodilator therapy with albuterol. The patient did exhibit allergic reaction suspected seconda rily to antibiotic exposure treated with Benadryl and Pepcid resolving without further sequela. The patient remained on room air with O2 saturations in the upper 90% range. Patient ambulatory without assistance or difficulty, tolerating regular oral intake, and voiding appropriately. I have examined the patient at the time of discharge and discussed the followup instructions and pertinent findings of the lab and x-ray studies. The patient verbalized understanding and agreement for followup. The patient is overall clinically stable and ready for discharge on 12/25/2017. DISCHARGE MEDICATIONS: 1. Proventil HFA 2 puffs inhaled q.6 hours p.r.n. 2. Omnicef 300 mg p.o. b.i.d. x5 days. 3. Iron 36 mg p.o. daily. 4. Mobic 7.5 mg p.o. daily. 5. Prednisone 40 mg p.o. q.a.m. FOLLOWUP: The patient to follow up with her medical services at halfway. The patient may also follow up with Dr. Nieves with Pulmonology Service 2-3 weeks after discharge. CONDITION ON DISCHARGE: Stable. ACTIVITY: ad aliya. SPECIAL INSTRUCTIONS: Recommend a Rheumatology referral and followup after discharge. DIET: Regular. CODE STATUS: FULL. DISPOSITION: Home, 12/25/2017. Total time preparing and coordinating this discharge is 33 minutes.
[2017-12-25 11:30] VITALS: BP 112/60; TEMP 98.3
--- NOTE | 2017-12-25 13:16 | PRG ---
DATE OF SERVICE: 12/25/2017 SERVICE: Pulmonary Medicine. INTERVAL HISTORY: The patient is doing fine from a respiratory standpoint. She denies any chest lissy n, nausea, vomiting, fevers or chills. Her breathing is much better. Her cough is gone. Her arthra lgias are also improved. She was released from custody. She is going to be picked up today and go h ome. She knows that she is going to followup with me in clinic in a couple of weeks. She also knows it is important for her to establish care with Rheumatology. PHYSICAL EXAMINATION: VITAL SIGNS: Afebrile, pulse 94, blood pressure 112/60, respirations 16, saturation 93% on room air. GENERAL: The patient is awake and alert, in no apparent distress. LUNGS: Decent air entry. There is no prolonged expiratory phase, wheezing or rhonchi. Crackles are present HEART: Normal rate, regular. ABDOMEN: Soft, nontender, nondistended. Bowel sounds are positive. MUSCULOSKELETAL: No cyanosis or clubbing. There is no pitting in the bilateral lower extremities. NEUROLOGIC: Grossly nonfocal. LABORATORY DATA: WBC 14.4, hemoglobin 11.4, platelets 346,000. Neutrophils are 58% with only 4% ban ds. Basic metabolic profile is essentially unremarkable. RAS is currently pending. Rheumatoid fact or is strongly positive. IgG4 subclass is negative, anti-Matilde-1 antibodies are also unremarkable. ASSESSMENT: 1. Systemic lupus erythematosus. 1. Rheumatoid arthritis. 2. Interstitial lung disease. 3. Acute hypoxic respiratory failure, resolved. 4. Community-acquired pneumonia, unlikely. PLAN: Antibiotics can be discontinued after 5 days. She will need to be discharged on 40 mg of pred nisone on a daily basis. I will deescalate this in the outpatient setting. We will verify that she follows up with Rheumatology. She has been released from custody. That being said, she plans on sta ella in this area for the next 2 years and is looking forward to following up with us. I will need t o establish pulmonary function studies. If she has progressive lung changes through time, we may nee d to pursue an open lung biopsy, but hopefully we can avoid that. That is for future time, however. From my perspective, she is stable for transition out of the hospital.
[2017-12-25 15:26] LABS: Anti-Striation AB Negative (Neg:<1:40); Antinuclear AB Positive (Negative); Antiparietal Cell Ab 3.1 Units (0.0-20.0); Complement C4 16 mg/dL (14-44); DSDNA AutoAb Less than 1 IU/mL (0-9); SCL-70 IgG AutoAb <0.2 AI (0.0-0.9); Smith IgG AutoAb <0.2 AI (0.0-0.9); Smooth Muscle AB 23 Units (0-19); Thyroid Peroxidase Abs 14 IU/mL (0-34); U1 RNP/SNRNP IgG AutoAb <0.2 AI (0.0-0.9)
--- NOTE | 2017-12-28 21:56 | PQF ---
EDWIN CARTY CHARLES DO [id number] CLINICAL DOCUMENTATION CLARIFICATION FORM: POST DISCHARGE Addendum to original discharge summary date: ____ Late entry note date: __ DATE: 12/28/2017 ATTN: MARY BARILLAS DO Please exercise your independent, professional judgment in responding to the clarification form. Clinical indicators are provided on the bottom of this form for your review Please check appropriate box(es): [ ] Sepsis due to: (Pna, UTI, gangrenous gall bladder, etc.) Due to: [ ] Device (please specify) [ ] Implant [ ] Graft [ ] Infusion [ ] SIRS due to non-infectious process (please specify etiology) [ ] with organ dysfunction [ ] without organ dysfunction [ ] Severe sepsis with acute organ dysfunction of: (Examples: respiratory failure, encephalopathy, acute kidney failure, other) [ ] Septic Shock [ ] Localized infection without sepsis [ ] Other diagnosis [ x ] Unable to determine In addition, please specify: Present on Admission (POA): [ ] Yes [ ] No [ x ] Unable to determine For continuity of documentation, please document condition throughout progress notes and discharge summary. Thank You. CLINICAL INDICATORS - SIGNS / SYMPTOMS / LABS H&P WBC 14.2, Lactic Acid 1.5 Leukocytosis with intermittent tachycardia, heart rate in the 90s. The patient meeting criteria for SIRS. PN 12/21 Pt with sepsis, Unable to place IV asked for central line. Operative Report Sepsis with no IV access Patient is a 47-year old female admitted with sepsis. ER Pulse 126, Resp 20, Temp 98.8 "I will cover for infection as the patient meets sepsis criteria with pulmonary source." DIAGNOSIS: Sepsis, Cough, Dyspnea RISK FACTORS Infection SLE TREATMENTS CBC IV Fluids Antibiotics (This form is maintained as a part of the permanent medical record) 2014 [employer]. All Rights Reserved [email or web address] [phone] MTDD
== END 2017-12-25 14:08 | DRG 546 ==
LOC: ERS 10:55 → 2NO 16:38
PROVIDERS: ADMIT Internal Medicine; ATTEND Internal Medicine
PROC: 02HV33Z Insertion of Infusion Device into Superior Vena Cava, Percutaneous Approach (ICD-10-PCS; principal; 2017-12-21)
DX: M32.13 Lung involvement in systemic lupus erythematosus (principal); J84.9 Interstitial pulmonary disease, unspecified; R65.10 Systemic inflammatory response syndrome (SIRS) of non-infectious origin without acute organ dysfunction; M06.841 Other specified rheumatoid arthritis, right hand; N20.0 Calculus of kidney; D72.829 Elevated white blood cell count, unspecified; Z87.891 Personal history of nicotine dependence; Z87.442 Personal history of urinary calculi
CPT/HCPCS: 36415; 71045; 71046; 71275; 74176; 80048; 80053; 81001; 82553; 82787; 82805; 83516; 83520; 83605; 83880; 84484; 85025; 85379; 86160; 86200; 86225; 86235; 86376; 86431; 93005; 93306; 94640; 94664; 94760; 96361; 96365; 96367; 96375; A4216; J0456; J0696; J1200; J1650; J2543; J2550; J2930; J3010; J3490; J7050; J7506; J7620; Q0162

== ENCOUNTER 2018-01-08 08:53 | Outpatient (CLI) | payer OTHER | END 2018-01-08 08:54 | disposition home or self-care (01) | LOC: BICMAMMO 08:53 | PROVIDERS: ATTEND Family Medicine | DX: M81.0 Age-related osteoporosis without current pathological fracture (principal) | CPT/HCPCS: 77080 ==

== ENCOUNTER 2018-01-09 12:31 | Inpatient (IN) | payer OTHER ==
[~2018-01-09 12:31] MED LIST: ISOVUE-370 76%-LOCM 1 ML ONE
[2018-01-09] MEDS ORDERED: Albuterol Sulfate 2.5 mg/0.5 ml Neb ONE (12:50)
[2018-01-09] MEDS ORDERED: Magnesium Sulfate 2 GM/100 ML BAG ONE (13:11)
[2018-01-09 13:21] LABS: Hemoglobin 13.6 g/dL (12.0-16.0); Mean Corpuscular HGB CONC 31.9 g/dL (32.0-36.0); Mean Corpuscular Hemoglobin 29.6 pg (27.0-31.0); Mean Corpuscular Volume 92.6 fl (81.0-99.0); Mean Platelet Volume 7.5 fL (7.4-10.4); Platelet Count 323 thou/uL (130-400); Red Blood Cell (RBC) Count 4.62 mill/uL (4.20-5.40); White Blood Cell (WBC) Count 15.3 thou/uL (4.8-10.8)
--- NOTE | 2018-01-09 13:23 | RAD ---
SINGLE VIEW CHEST: Date: 01/09/18 COMPARISON: 12/21/17. CTA of chest dated 12/20/17. HISTORY: Dyspnea and difficulty breathing. FINDINGS: Single view of the chest shows a cardiomediastinal silhouette which is upper limits of normal in size . Increased interstitial markings are stable. There is no evidence of consolidation, mass, or pleural effusion. Cholecystectomy clips are seen. IMPRESSION: Increased interstitial lung markings in the lung bases may represent chronic interstitial lung diseas e. POS: [facility]
[2018-01-09 13:43] LABS: Band 9 % (5-11); Eosinophils 1 % (0-10); Lymphocytes 14 % (21-51); Monocytes 6 % (0-10); PLT Morphology Comment Appears Adequate; RBC Morphology Normal; Reactive Lymphocytes 2 % (0-10)
[2018-01-09 13:47] LABS: CKMB 4.7 ng/mL (0-6.6); MDiff Complete? YES; Troponin I 0.011 ng/mL (< 0.028)
[2018-01-09 13:49] LABS: Bilirubin, Total 0.2 mg/dL (0.2-1.2); Calcium 8.7 mg/dL (7.8-10.44); Chloride 106 mmol/L (98-107); Potassium 3.9 mmol/L (3.5-5.1); Sodium 138 mmol/L (136-145)
[2018-01-09 13:50] LABS: Albumin 3.8 g/dL (3.5-5.0)
[2018-01-09 13:53] LABS: Globulin 3.9 g/dL (2.4-3.5); Glucose 105 mg/dL (70-105); Protein, Total 7.7 g/dL (6.0-8.3)
[2018-01-09 13:54] LABS: Anion Gap 13 mmol/L (10-20); Carbon Dioxide 25 mmol/L (22-29)
[2018-01-09 13:55] LABS: Alkaline Phosphatase 77 U/L (40-150)
[2018-01-09 13:56] LABS: Calc. Creatinine Clearance 0 mL/min (70-130); Estimated GFR-MDRD 88
[2018-01-09 13:57] LABS: BUN (Urea Nitrogen) 13 mg/dL (7.0-18.7)
[2018-01-09 13:58] LABS: ALT (SGPT) 28 U/L (8-55); AST (SGOT) 21 U/L (5-34)
[2018-01-09 13:59] LABS: CK (CPK) 258 U/L (29-168)
[2018-01-09] MEDS ORDERED: Acetaminophen 500 MG TAB ONE (14:03)
--- NOTE | 2018-01-09 15:53 | CT ---
CT PULMONARY ANGIOGRAM WITH IV CONTRAST AND 3D POSTPROCESSING 01/09/18 FINDINGS: Comparison made to the exam of 12/20/17. Pulmonary artery vasculature is well opacified without filling defects to suggest pulmonary embolism. The thoracic aorta is well opacified without aneurysm or dissection. No pleural or pericardial effus ions are seen. Chronic interstitial changes are again seen. Prominent lymph nodes in the axillary and subpectoral regions are redemonstrated. Upper abdominal tomograms demonstrate nonobstructing renal c alculi. No acute osseous abnormalities are identified. IMPRESSION: No CT evidence of pulmonary embolism. POS: [facility]
[2018-01-09 17:26] LABS: Base Excess-Venous -2.4 mmol/L (0 (+/- 2.5)); Bicarbonate (HCO3v) 22.4 mmol/L (1.0-85.0); Calcium, Ionized 1.06 mmol/L (1.12-1.32); Hemoglobin - Calc 14.3 g/dL (12.0-18.0); O2 Tension (PvO2) 81.2 mmHg (35.0-45.0); Potassium 3.8 mmol/L (3.4-4.7); T. Carbon Dioxide 23.6 mmol/L (1.0-85.0); pH (Venous) 7.379 (7.35-7.45); vO2 Saturation-calc 95.7 % (94-98)
[2018-01-09] MEDS ORDERED: Acetaminophen 325 MG TAB PO PRN (18:01)
[2018-01-09] MEDS ORDERED: [UNRECOGNIZED DRUG - OTHER] IV SCH (18:01)
[2018-01-09] MEDS ORDERED: Ondansetron ODT 4 MG TAB PO PRN (18:01)
[2018-01-09] MEDS ORDERED: D5 IV SCH (18:01)
[2018-01-09] MEDS ORDERED: KCL IV SCH (18:01)
[2018-01-09 18:12] VITALS: BMI 22.3
--- NOTE | 2018-01-09 19:31 | HP ---
PRIMARY CARE PHYSICIAN: She is a [facility] Call admission reports. HISTORY OF PRESENT ILLNESS: Patient referred from the emergency room with respiratory distress and c oughing. She was discharged from this hospital on 12/25/2017 after a simple episode. She was discha rged on Proventil 2 puffs q.6 hours, Omnicef 300 for 5 days, prednisone 40 mg a day. She now present s with recurrent shortness of breath protracted coughing to the point of gagging. When she was first seen in the Emergency Room, respiratory rate was 36, pulse was 155, O2 sat was actually normal. She denies fever, chills, or hemoptysis. She has some right pleuritic chest pain. PAST MEDICAL HISTORY: A 20+ year history of systemic lupus erythematosus, rheumatoid arthritis, not on any current disease modifying agents. MEDICATIONS: Medicines as mentioned before, prednisone 40 mg a day, albuterol inhaler every 6 hours as needed. PAST SURGICAL HISTORY: Cholecystectomy, hysterectomy with bilateral oophorectomy, and right upper ex tremity excision of vein. ALLERGIES: BUTORPHANOL, FENTANYL, KETOROLAC, MORPHINE, STADOL, TORADOL. FAMILY HISTORY: No inheritable disease such as hypertension, coronary artery disease or diabetes. SOCIAL HISTORY: No tobacco, alcohol, or illicit drug use. No exposure to chemicals, asbestos, etc. REVIEW OF SYSTEMS: General: No headache, dizziness, fainting, fever or chills. Eyes: No double vi libia, blurred vision, flashing lights. Ear, Nose, Throat: No ear pain or drainage. No nasal bleedi ng. No trouble swallowing, no oral pain. Cardiovascular: She has some pleuritic chest pain, no pre ssure, chest pain, no orthopnea or paroxysmal nocturnal dyspnea. Respiratory: Short of breath, coug jessica continuously nonproductive. Gastrointestinal: No nausea, vomiting, diarrhea, constipation or a bdominal pain. Genitourinary: No hematuria, dysuria or nocturia. Musculoskeletal: No specific mus tom or joint pains at the present time. She does swell on the prednisone. Neurologic: No strokes, seizures or focal weakness. Psychiatric: No anxiety, depression. Skin: No bruising, bleeding or r pilar. Heme/Lymph: No tender or swollen lymph nodes in axilla, inguinal or cervical area. PHYSICAL EXAMINATION: GENERAL: She is alert, oriented, somewhat improved from previous. CURRENT VITAL SIGNS: Blood pressure 111/70, pulse 101, respirations 24, temperature is 98.9. She sa ys the pain is moderate on deep inspiration and not significant on shallow inspiration. HEENT: Reveal pupils equal, round, and reactive to light. Extraocular movements are intact. Sclera e white. Tympanic membranes clear. Nose clear. Oral mucous membranes are wet. NECK: Supple, without jugular venous distention, adenopathy or thyromegaly. CHEST: Has clear breath sounds in the apices. She has fine rales from the bottom two-thirds of the lungs posteriorly and the bottom half of the lungs anteriorly. HEART: Had a regular rate and rhythm. It was rapid. First and second heart sounds were accentuated . There were no murmurs appreciated. ABDOMEN: Soft, bowel sounds are normal. There is no hepatosplenomegaly, no masses, no rebound, no b ruits. EXTREMITIES: Reveal no cyanosis, clubbing or edema. PULSES: Carotid, radial, femoral, and dorsalis pedis pulses full and intact. SKIN: Warm and dry without bruises or rash. HEME/LYMPH: No tender or swollen lymph nodes in axilla, inguinal or cervical area. NEUROLOGICAL: Cranial nerves II-XII deep tendon reflexes intact. IMAGING: No EKG is presented. CTA of the thorax demonstrates no pulmonary emboli, reviewed by me. Chest x-ray demonstrates significant interstitial changes on the left from rib T5 down on the right f rom rib T4 down. Cardiac silhouette is within normal limits, reviewed by me. LABORATORY DATA: White cell count 15.3 with no left shift, platelet count 323,000, hemoglobin 13.6. D-dimer was elevated at 1-2. Comp metabolic profile is normal except for a CK of 258. Cardiac enzy mes normal. ADMITTING DIAGNOSES: Acute respiratory distress, pleuritic chest pain, systemic lupus erythematosus, rheumatoid arthritis. PLAN: The patient will be admitted. Her oral prednisone will be stopped. She will be put on 20 mg Solu-Medrol q.6, nebulizers will be ordered q.4h. O2 will be supplemented to maintain O2 of 92 or be tter. Arterial blood gases have been ordered, but are not currently available.
[2018-01-09] MEDS: [UNRECOGNIZED DRUG - OTHER] IV SCH (20:10)
[2018-01-09] MEDS: SODIUM CHLORIDE IV SCH (20:10)
[2018-01-09] MEDS: Benzonatate 100 MG CAP PO SCH (20:10)
[2018-01-09] MEDS: POTASSIUM CHLORIDE IV SCH (20:10)
[2018-01-09] MEDS: ADMIXTURE FEE IV SCH (20:10)
[2018-01-09] MEDS: Azithromycin 500 MG in Sodium Chloride 0.9% 250 ML 250 ML IVPB SCH (20:10)
[2018-01-09] MEDS: HYDROcodone/Acetaminophen 5/325 mg Tablet PO PRN (20:16)
[2018-01-10 05:39] LABS: #Lymphocytes 1.1 thou/uL (1.20-3.40); #Monocytes 0.1 thou/uL (0.11-0.59); #Neutrophils 9.3 thou/uL (1.40-6.50); %Eosinophils 0.1 % (0.0-10.0); %Lymphocytes 10.7 % (21.0-51.0); %Monocytes 1.3 % (0.0-10.0); %Neutrophils 87.9 % (42.0-75.0); Hemoglobin 11.5 g/dL (12.0-16.0); Mean Corpuscular HGB CONC 32.3 g/dL (32.0-36.0); Mean Corpuscular Hemoglobin 29.9 pg (27.0-31.0); Mean Corpuscular Volume 92.3 fl (81.0-99.0); Mean Platelet Volume 7.5 fL (7.4-10.4); Platelet Count 258 thou/uL (130-400); RBC Distribution Width 12.9 % (11.5-14.5); Red Blood Cell (RBC) Count 3.84 mill/uL (4.20-5.40); White Blood Cell (WBC) Count 10.6 thou/uL (4.8-10.8)
[2018-01-10 05:47] LABS: Anion Gap 13 mmol/L (10-20); BUN (Urea Nitrogen) 11 mg/dL (7.0-18.7); Calc. Creatinine Clearance 91 mL/min (70-130); Calcium 8.6 mg/dL (7.8-10.44); Carbon Dioxide 23 mmol/L (22-29); Chloride 106 mmol/L (98-107); Estimated GFR-MDRD Greater than 90; Glucose 154 mg/dL (70-105); Potassium 4.5 mmol/L (3.5-5.1); Sodium 137 mmol/L (136-145)
[2018-01-10] MEDS: [UNRECOGNIZED DRUG - OTHER] IV SCH ×4 (06:43→23:00)
[2018-01-10] MEDS: ADMIXTURE FEE IV SCH ×4 (06:43→23:00)
[2018-01-10] MEDS: POTASSIUM CHLORIDE IV SCH ×4 (06:43→23:00)
[2018-01-10] MEDS: SODIUM CHLORIDE IV SCH ×4 (06:43→23:00)
[2018-01-10] MEDS: Benzonatate 100 MG CAP PO SCH ×3 (08:04→20:40)
[2018-01-10] MEDS: Enoxaparin Sodium 40 MG/0.4 ML SYRINGE SC SCH (08:04)
--- NOTE | 2018-01-10 12:17 | PDOC.PN ---
- Subjective Encounter Start Date: 01/10/18 Encounter Start Time: 12:15 Subjective: cough better on tessalon, sob improved, chest pain gone - Objective Resuscitation Status: Resuscitation Status FULL:Full Resuscitation MAR Reviewed: Yes Vital Signs & Weight: Vital Signs (12 hours) Temp Pulse Resp BP Pulse Ox 01/10/18 11:00 98.5 F 114 H 18 97/60 96 01/10/18 10:53 125 H 18 95 01/10/18 08:00 98.3 F 98 16 111/68 95 01/10/18 07:38 96 01/10/18 07:37 92 16 96 01/10/18 01:49 122 H 18 95 01/10/18 00:35 98 F 106 H 18 97/55 L 93 L Weight Weight 130 lb 1 oz Result Diagrams: 01/10/18 04:58 01/10/18 04:58 Phys Exam - Physical Examination Neck: no JVD fine rales ant/post [place] Cardiovascular: RRR, no significant murmur Gastrointestinal: soft, non-tender Musculoskeletal: no edema Dx/Plan (1) Acute respiratory disease Code(s): J06.9 - ACUTE UPPER RESPIRATORY INFECTION, UNSPECIFIED Status: Acute (2) Interstitial lung disease Code(s): J84.9 - INTERSTITIAL PULMONARY DISEASE, UNSPECIFIED Status: Chronic Comment: Continue Prednisone, will continue outpt work up including PFT's, add ProAir HFA 2puffs QID (3) Rheumatoid arthritis Code(s): M06.9 - RHEUMATOID ARTHRITIS, UNSPECIFIED Status: Chronic Comment: continue Prednisone 40mg daily, Mobic 7.5mg BID (4) SLE (systemic lupus erythematosus) Code(s): M32.9 - SYSTEMIC LUPUS ERYTHEMATOSUS, UNSPECIFIED Status: Chronic Comment: See above for mgmt, outpt for alf mgmt - Plan when patient stablized . she will need duoneb and around the clock tessalon -: at retirement. rheumatology outpt eval needed for DMA. -: for now, cont iv steroids, taper as improves, and frequent duoneb tx * .
[2018-01-10] MEDS: diphenhydrAMINE 25 MG CAP PO PRN ×2 (12:56→20:40)
[2018-01-10] MEDS: Azithromycin 500 MG in Sodium Chloride 0.9% 250 ML 250 ML IVPB SCH (18:09)
[2018-01-10] MEDS: HYDROcodone/Acetaminophen 5/325 mg Tablet PO PRN (20:43)
[2018-01-11] MEDS: diphenhydrAMINE 25 MG CAP PO PRN ×2 (00:27→17:39)
[2018-01-11] MEDS: HYDROcodone/Acetaminophen 5/325 mg Tablet PO PRN ×3 (00:27→17:39)
[2018-01-11] MEDS: Benzonatate 100 MG CAP PO SCH ×3 (09:50→20:26)
[2018-01-11] MEDS: SODIUM CHLORIDE IV SCH ×2 (09:50→21:47)
[2018-01-11] MEDS: ADMIXTURE FEE IV SCH ×2 (09:50→21:47)
[2018-01-11] MEDS: POTASSIUM CHLORIDE IV SCH ×2 (09:50→21:47)
[2018-01-11] MEDS: [UNRECOGNIZED DRUG - OTHER] IV SCH ×2 (09:50→21:47)
[2018-01-11] MEDS: Enoxaparin Sodium 40 MG/0.4 ML SYRINGE SC SCH (09:51)
[2018-01-11] MEDS ORDERED: guaiFENesin ER 600 MG TAB PO SCH (13:00)
[2018-01-11 13:44] LABS: #Lymphocytes 1.3 thou/uL (1.20-3.40); #Monocytes 0.5 thou/uL (0.11-0.59); #Neutrophils 16.2 thou/uL (1.40-6.50); %Basophils 0.1 % (0.0-1.0); %Eosinophils 0.1 % (0.0-10.0); %Lymphocytes 7.4 % (21.0-51.0); %Monocytes 2.5 % (0.0-10.0); %Neutrophils 89.9 % (42.0-75.0); Hemoglobin 11.8 g/dL (12.0-16.0); Mean Corpuscular HGB CONC 31.7 g/dL (32.0-36.0); Mean Corpuscular Hemoglobin 29.5 pg (27.0-31.0); Mean Platelet Volume 7.4 fL (7.4-10.4); Platelet Count 294 thou/uL (130-400); RBC Distribution Width 13.2 % (11.5-14.5); Red Blood Cell (RBC) Count 4.01 mill/uL (4.20-5.40)
[2018-01-11 13:48] LABS: Anion Gap 11 mmol/L (10-20); BUN (Urea Nitrogen) 11 mg/dL (7.0-18.7); Calc. Creatinine Clearance 89 mL/min (70-130); Calcium 8.7 mg/dL (7.8-10.44); Carbon Dioxide 23 mmol/L (22-29); Chloride 105 mmol/L (98-107); Estimated GFR-MDRD Greater than 90; Glucose 125 mg/dL (70-105); Magnesium 2.2 mg/dL (1.6-2.6); Potassium 4.4 mmol/L (3.5-5.1); Sodium 135 mmol/L (136-145)
--- NOTE | 2018-01-11 13:52 | PDOC.PN ---
- Subjective Encounter Start Date: 01/11/18 Encounter Start Time: 12:50 -: old records requested/rev Pt seen and exmained, chart reviewe din its entirety, this is my first visit with this patient. Follow up for ILD, hx lupus, acute hypoxic resp failure, Hx RA, and resp distress. Pt on scheduled duonebs q6. labs yesterday looked better, but this AM pt HR went from 70s to 120s. Pt looks anxious, but able to talk in sentences. denies CP, some cough, non-productive. No acute events overnight. Deneis f/c All systems reviewed and neg for all except as above - Objective Resuscitation Status: Resuscitation Status FULL:Full Resuscitation MAR Reviewed: Yes Vital Signs & Weight: Vital Signs (12 hours) Temp Pulse Resp BP Pulse Ox 01/11/18 13:28 98.5 F 107 H 18 108/73 95 01/11/18 10:37 124 H 16 97 01/11/18 08:15 99.1 F 121 H 20 105/72 93 L 01/11/18 08:00 99.1 F 124 H 16 93 L 01/11/18 07:23 82 15 96 01/11/18 02:28 103 H 16 96 Weight Weight 130 lb 1 oz I&O: 01/10/18 01/11/18 01/12/18 06:59 06:59 06:59 Intake Total 1730 Balance 1730 Result Diagrams: 01/11/18 13:27 01/11/18 13:27 Radiology Reviewed by me: Yes EKG Reviewed by me: Yes Phys Exam - Physical Examination Constitutional: NAD anxious HEENT: PERRLA, moist MMs, sclera anicteric, oral pharynx no lesions Neck: no nodes, no JVD, supple, full ROM Respiratory: no wheezing no prolonged exp phase, diffuse fine crackles Cardiovascular: no significant murmur tachy, regular Gastrointestinal: soft, non-tender, no distention, positive bowel sounds Musculoskeletal: no edema, pulses present Neurological: non-focal, normal sensation, moves all 4 limbs Lymphatic: no nodes Psychiatric: normal affect, A&O x 3 Skin: no rash, normal turgor, cap refill <2 seconds Dx/Plan (1) Acute respiratory failure with hypoxemia Code(s): J96.01 - ACUTE RESPIRATORY FAILURE WITH HYPOXIA Status: Acute Comment: decrease nebs, wean O2 as tolerated. on solumdrol. (2) Interstitial lung disease Code(s): J84.9 - INTERSTITIAL PULMONARY DISEASE, UNSPECIFIED Status: Chronic Comment: Continue Prednisone, will continue outpt work up including PFT's, add ProAir HFA 2puffs QID (3) Rheumatoid arthritis Code(s): M06.9 - RHEUMATOID ARTHRITIS, UNSPECIFIED Status: Chronic Qualifiers: Rheumatoid arthritis location: unspecified site Comment: on solumedrol at present, to po prednisone in AM? (4) SLE (systemic lupus erythematosus) Code(s): M32.9 - SYSTEMIC LUPUS ERYTHEMATOSUS, UNSPECIFIED Status: Chronic Qualifiers: Systemic lupus erythematosus type: unspecified Systemic lupus erythematosus organ involvement: unspecified Qualified Code(s): M32.9 - Systemic lupus erythematosus, unspecified Comment: See above for mgmt, [facility] - Plan cont current plan of care, continue antibiotics, respiratory therapy, out of bed /ambulate * .
--- NOTE | 2018-01-11 14:11 | RAD ---
PORTABLE CHEST: Date: 01/11/18 HISTORY: Dyspnea. COMPARISON: 01/09/18. FINDINGS: Heart size is enlarged. There are interstitial changes in both lung bases that are stable and I feel are chronic in nature. IMPRESSION: Cardiomegaly with chronic interstitial change. POS: DARIUS
[2018-01-11] MEDS: Azithromycin 500 MG in Sodium Chloride 0.9% 250 ML 250 ML IVPB SCH (18:00)
[2018-01-11] MEDS: guaiFENesin ER 600 MG TAB PO SCH (20:26)
[2018-01-12] MEDS: HYDROcodone/Acetaminophen 5/325 mg Tablet PO PRN ×3 (01:36→19:55)
[2018-01-12] MEDS: diphenhydrAMINE 25 MG CAP PO PRN ×3 (01:36→19:55)
[2018-01-12 06:02] LABS: #Lymphocytes 1.2 thou/uL (1.20-3.40); #Monocytes 0.3 thou/uL (0.11-0.59); #Neutrophils 15.5 thou/uL (1.40-6.50); %Basophils 0.2 % (0.0-1.0); %Eosinophils 0.1 % (0.0-10.0); %Lymphocytes 6.8 % (21.0-51.0); %Monocytes 1.7 % (0.0-10.0); %Neutrophils 91.3 % (42.0-75.0); Hemoglobin 11.9 g/dL (12.0-16.0); Mean Corpuscular HGB CONC 31.5 g/dL (32.0-36.0); Mean Corpuscular Hemoglobin 29.4 pg (27.0-31.0); Mean Corpuscular Volume 93.5 fl (81.0-99.0); Mean Platelet Volume 7.3 fL (7.4-10.4); Platelet Count 289 thou/uL (130-400); RBC Distribution Width 13.2 % (11.5-14.5); Red Blood Cell (RBC) Count 4.04 mill/uL (4.20-5.40)
[2018-01-12 06:10] LABS: Anion Gap 11 mmol/L (10-20); BUN (Urea Nitrogen) 13 mg/dL (7.0-18.7); Calc. Creatinine Clearance 87 mL/min (70-130); Calcium 8.7 mg/dL (7.8-10.44); Carbon Dioxide 23 mmol/L (22-29); Chloride 105 mmol/L (98-107); Estimated GFR-MDRD Greater than 90; Glucose 163 mg/dL (70-105); Magnesium 2.3 mg/dL (1.6-2.6); Potassium 4.4 mmol/L (3.5-5.1); Sodium 135 mmol/L (136-145)
[2018-01-12] MEDS: guaiFENesin ER 600 MG TAB PO SCH ×2 (08:16→19:54)
[2018-01-12] MEDS: Enoxaparin Sodium 40 MG/0.4 ML SYRINGE SC SCH (08:16)
[2018-01-12] MEDS: Benzonatate 100 MG CAP PO SCH ×3 (08:16→19:54)
[2018-01-12] MEDS: [UNRECOGNIZED DRUG - OTHER] IV SCH (08:27)
[2018-01-12] MEDS: ADMIXTURE FEE IV SCH (08:27)
[2018-01-12] MEDS: SODIUM CHLORIDE IV SCH (08:27)
[2018-01-12] MEDS: POTASSIUM CHLORIDE IV SCH (08:27)
--- NOTE | 2018-01-12 16:11 | PDOC.PN ---
- Subjective Encounter Start Date: 01/12/18 Encounter Start Time: 10:50 pt did okay overnight, HR down to 90s, then back to 120s this AM. Resp status up and down, no F/C, cough but nonproductive, no hemoptysis all systems reviewed and neg x as above - Objective Resuscitation Status: Resuscitation Status FULL:Full Resuscitation MAR Reviewed: Yes Vital Signs & Weight: Vital Signs (12 hours) Temp Pulse Resp BP Pulse Ox 01/12/18 14:49 124 H 20 94 L 01/12/18 10:50 131 H 20 99 01/12/18 08:00 98.0 F 94 16 109/76 98 01/12/18 06:58 121 H 20 99 01/12/18 05:18 98 F 92 16 105/70 98 Weight Weight 130 lb 1 oz I&O: 01/11/18 01/12/18 01/13/18 06:59 06:59 06:59 Intake Total 1730 4070 Balance 1730 4070 Result Diagrams: 01/12/18 05:38 01/12/18 05:38 Phys Exam - Physical Examination Constitutional: NAD HEENT: PERRLA, moist MMs, sclera anicteric, oral pharynx no lesions Neck: no nodes, no JVD, supple, full ROM exp wheezes, coarse rales, some rhonchi, increased exp phase Cardiovascular: no significant murmur, no rub tachy, regular Gastrointestinal: soft, non-tender, no distention, positive bowel sounds Musculoskeletal: no edema, pulses present Neurological: non-focal, normal sensation, moves all 4 limbs Lymphatic: no nodes Psychiatric: normal affect, A&O x 3 Skin: no rash, normal turgor, cap refill <2 seconds Dx/Plan (1) Acute respiratory failure with hypoxemia Code(s): J96.01 - ACUTE RESPIRATORY FAILURE WITH HYPOXIA Status: Acute Comment: decrease nebs, wean O2 as tolerated. on solumedrol. to po prednisone soon/. Ask pulm to see for their recommendations (2) Interstitial lung disease Code(s): J84.9 - INTERSTITIAL PULMONARY DISEASE, UNSPECIFIED Status: Chronic Comment: Continue Prednisone, will continue outpt work up including PFT's, add ProAir HFA 2puffs QID (3) Rheumatoid arthritis Code(s): M06.9 - RHEUMATOID ARTHRITIS, UNSPECIFIED Status: Chronic Qualifiers: Rheumatoid arthritis location: unspecified site Comment: on solumedrol at present, to po prednisone in AM? (4) SLE (systemic lupus erythematosus) Code(s): M32.9 - SYSTEMIC LUPUS ERYTHEMATOSUS, UNSPECIFIED Status: Chronic Qualifiers: Systemic lupus erythematosus type: unspecified Systemic lupus erythematosus organ involvement: unspecified Qualified Code(s): M32.9 - Systemic lupus erythematosus, unspecified Comment: See above for mgmt, outpt for [facility] mgmt - Plan cont current plan of care, continue antibiotics, PT/OT, respiratory therapy * .
[2018-01-12] MEDS: Azithromycin 500 MG in Sodium Chloride 0.9% 250 ML 250 ML IVPB SCH (18:16)
--- NOTE | 2018-01-12 18:41 | EKG ---
Test Reason : Blood Pressure : / mmHG Vent. Rate : 104 BPM Atrial Rate : 104 BPM P-R Int : 128 ms QRS Dur : 076 ms QT Int : 318 ms P-R-T Axes : 042 016 016 degrees QTc Int : 418 ms Sinus tachycardia Otherwise normal ECG When compared with ECG of 09-JAN-2018 12:35, (Unconfirmed) No significant change was found Confirmed by RD CONROY (2) on 01/12/2018 6:41:20 PM Referred By: Confirmed By:RD CONROY
--- NOTE | 2018-01-12 20:44 | CON ---
DATE OF CONSULTATION: 01/12/2018 SERVICE: Pulmonary Medicine. REASON FOR CONSULTATION: Cough/Interstitial lung disease. HISTORY OF PRESENT ILLNESS: The patient is a 47-year-old -[place] female with past medical history significant for systemic lupus erythematosus, and rheumatoid arthritis. She was recently in the hospital about a month ago. She got discharged on steroids, and after completing a course of antibiotics. Ultimately, she was discovered to have interstitial lung disease associated with uncontrolled systemic lupus erythematosus. She has never been on any disease modifying therapy. She is a previously incarcerated, but was subsequently released when she was admitted to the hospital recently. She denies any current fevers, chills, nausea or vomiting. She felt fantastic for 5 days after being discharged from the hospital, but then had recurrence in cough and congestion. She is coughing almost continuously. She brings up no sputum whatsoever, however. She has a continuous rattle in her chest. She denies any current nausea or vomiting. She is not having any rashes or hot, red , swollen joints. She seems to be tolerating the prednisone quite well, although sometimes it affects her sleep. I since being in the hospital, she was started on an antibiotic covering atypical organisms, and she has made significant improvements. Interestingly, she does have orthopnea. Whenever she lies down 45 minutes after she goes to bed, she will wake up acutely short- winded. She have to sit on the side of the bed for 15-20 minutes before she feels better. PAST MEDICAL HISTORY: 1. Systemic lupus erythematosus. 2. Rheumatoid arthritis. 3. Interstitial lung disease. PAST SURGICAL HISTORY: 1. Cholecystectomy. 2. Hysterectomy with bilateral oophorectomy. 3. Right upper extremity surgery. ALLERGIES: FENTANYL, KETOROLAC, MORPHINE, STADOL, TORADOL, BUTORPHANOL. MEDICATIONS: List of her inpatient medications were reviewed. Multiple updates were made. FAMILY HISTORY: Noncontributory. SOCIAL HISTORY: Negative for alcohol, tobacco, or illicit drug use currently. She has no exposure to chemicals, dust asbestos, or tuberculosis. REVIEW OF SYSTEMS: General, head, ears, eyes, nose, throat, cardiovascular, respiratory, GI, , musculoskeletal, neurologic, and skin is negative except as mentioned in the HPI. PHYSICAL EXAMINATION: VITAL SIGNS: Afebrile, pulse 94, blood pressure 109/76, respirations 20, and saturation 99% on 2 liters nasal cannula. GENERAL: The patient is awake, alert, in no apparent distress. LUNGS: Excellent air entry bilaterally. There is no prolonged expiratory phase. I do not appreciate rhonchi. There is extensive crackles on the right, which are not present on the left. HEART: Normal rate, regular. ABDOMEN: Soft, nontender, nondistended. Bowel sounds are positive. MUSCULOSKELETAL: No cyanosis or clubbing. There is no pitting in the bilateral lower extremities. NEUROLOGIC: Grossly nonfocal. LABORATORY DATA: WBC 17.0, hemoglobin 11.9, platelets 289,000. D-dimer 1.22. PH 7.37, pCO2 of 38. Basic metabolic profile is essentially unremarkable. BNP was below the assay limit of normal, troponin 0.011 and unremarkable on presentation. Ionized calcium was previously slightly low. Liver function studies remain unremarkable. CK 258. Urinalysis was previously unremarkable with no red blood cells. Immunology was positive on rheumatoid factor, and the RAS screen. Antismooth muscle, antibody was also abnormal. IgG4 subclass was normal. IgE level fell within the normal limits. Anti-Matilde-1 antibody was unremarkable. C4 was previously reduced. IMAGIN. Chest x-ray demonstrates findings consistent with chronic interstitial lung changes. These are fairly mild. There is no significant interval change. 2. CT of the chest demonstrates no evidence of a pulmonary embolism. No pleural or pericardial effusions are identified. Chronic interstitial changes are present throughout bilateral lung cruz. They are more predominantly displayed in the bibasilar region, and in the periphery. ASSESSMENT: 1. Acute hypoxic respiratory failure, resolved again. 2. Interstitial lung disease secondary to systemic lupus erythematosus and/or rheumatoid arthritis. 3. Acute bronchitis. DISCUSSION AND PLAN: I will deescalate her steroids once again. We will check a respiratory virus panel, HIV, and a T-SPOT. She is not generating any sputum. If she does, we can send it for Gram stain and culture as well as an AFB. I will change the nebs over to something that can help liberate some sputum. I agree with antibiotics directed at atypical organisms. We will empirically treat for acid reflux disease. We will try keep her head of bed elevated by 30 degrees, and I will put her on an acid suppressing medication. IV fluids will be interrupted as the patient is tolerating p.o. 70 minutes have been devoted to this patient in various activities. I personally reviewed all imaging studies and laboratory data noted within this document. For fifty percent of this time, I was interacting with the patient at the bedside or coordinating care with the care team. For the remainder of the time I was immediately available to the patient in the hospital unit. MAYRA
[2018-01-13 05:24] LABS: Anion Gap 13 mmol/L (10-20); BUN (Urea Nitrogen) 16 mg/dL (7.0-18.7); Calc. Creatinine Clearance 83 mL/min (70-130); Calcium 8.7 mg/dL (7.8-10.44); Carbon Dioxide 25 mmol/L (22-29); Chloride 104 mmol/L (98-107); Estimated GFR-MDRD Greater than 90; Glucose 106 mg/dL (70-105); Magnesium 2.1 mg/dL (1.6-2.6); Potassium 3.9 mmol/L (3.5-5.1); Sodium 138 mmol/L (136-145)
[2018-01-13 05:44] LABS: Band 1 % (5-11); HIV (1/2) Antibody/Antigen Non-Reactive (NonReactive); HIV 1/2 INDEX 0.07 S/CO (<1.00); Hemoglobin 11.8 g/dL (12.0-16.0); Lymphocytes 25 % (21-51); MDiff Complete? YES; Mean Corpuscular HGB CONC 32.5 g/dL (32.0-36.0); Mean Corpuscular Hemoglobin 30.5 pg (27.0-31.0); Mean Corpuscular Volume 93.8 fl (81.0-99.0); Mean Platelet Volume 7.3 fL (7.4-10.4); Monocytes 5 % (0-10); Neutrophil 69 % (42-75); Nucleated RBC 1 % (0); PLT Morphology Comment Appears Adequate; Platelet Count 299 thou/uL (130-400); RBC Distribution Width 13.2 % (11.5-14.5); Red Blood Cell (RBC) Count 3.86 mill/uL (4.20-5.40); White Blood Cell (WBC) Count 18.1 thou/uL (4.8-10.8)
[2018-01-13] MEDS ORDERED: predniSONE 20 MG TAB PO SCH (08:00)
[2018-01-13] MEDS: diphenhydrAMINE 25 MG CAP PO PRN ×2 (08:17→18:21)
[2018-01-13] MEDS: HYDROcodone/Acetaminophen 5/325 mg Tablet PO PRN ×2 (08:17→18:16)
[2018-01-13] MEDS: guaiFENesin ER 600 MG TAB PO SCH ×2 (08:18→20:51)
[2018-01-13] MEDS: Benzonatate 100 MG CAP PO SCH (08:18)
[2018-01-13] MEDS: Enoxaparin Sodium 40 MG/0.4 ML SYRINGE SC SCH (08:19)
--- NOTE | 2018-01-13 12:14 | PDOC.PN ---
- Subjective Encounter Start Date: 01/13/18 Encounter Start Time: 09:00 Pt looks more comfortable, finally expectorated some plegm, set for cultures an smears. Seen by Dr Nieves yesterday, appreciate his assistance. decreased steroids, modified neb treatments. Pt wenaed off of O2. Feels better today HR down to 85 overnight, low 100s this AM No F/c, no N/V/D/C, no CP, still cough, no new complaints all systems reviewed and neg x as above - Objective Resuscitation Status: Resuscitation Status FULL:Full Resuscitation MAR Reviewed: Yes Vital Signs & Weight: Vital Signs (12 hours) Temp Pulse Resp BP Pulse Ox 01/13/18 08:00 98.5 F 106 H 18 109/75 92 L 01/13/18 06:42 100 20 Weight Weight 130 lb 1 oz I&O: 01/12/18 01/13/18 01/14/18 06:59 06:59 06:59 Intake Total 4070 2580 Balance 4070 2580 Result Diagrams: 01/13/18 05:01 01/13/18 05:01 Phys Exam - Physical Examination Constitutional: NAD HEENT: PERRLA, moist MMs, sclera anicteric, oral pharynx no lesions Neck: no nodes, no JVD, supple, full ROM coarse bilateral BS, no wheezing, no prolonged expiration. Cardiovascular: no significant murmur, no rub tachy, regular Gastrointestinal: soft, non-tender, no distention, positive bowel sounds Musculoskeletal: no edema, pulses present Neurological: non-focal, normal sensation, moves all 4 limbs Lymphatic: no nodes Psychiatric: normal affect, A&O x 3 Skin: no rash, normal turgor, cap refill <2 seconds Dx/Plan (1) Acute respiratory failure with hypoxemia Code(s): J96.01 - ACUTE RESPIRATORY FAILURE WITH HYPOXIA Status: Acute Comment: decrease nebs, wean O2 as tolerated. on solumedrol. to po prednisone soon/. Follow up on pulm recommendations (2) Interstitial lung disease Code(s): J84.9 - INTERSTITIAL PULMONARY DISEASE, UNSPECIFIED Status: Chronic Comment: Continue Prednisone, will continue outpt work up including PFT's, add ProAir HFA 2puffs QID (3) Rheumatoid arthritis Code(s): M06.9 - RHEUMATOID ARTHRITIS, UNSPECIFIED Status: Chronic Qualifiers: Rheumatoid arthritis location: unspecified site Comment: steroids to taper now (4) SLE (systemic lupus erythematosus) Code(s): M32.9 - SYSTEMIC LUPUS ERYTHEMATOSUS, UNSPECIFIED Status: Chronic Qualifiers: Systemic lupus erythematosus type: unspecified Systemic lupus erythematosus organ involvement: unspecified Qualified Code(s): M32.9 - Systemic lupus erythematosus, unspecified Comment: See above for mgmt, outpt for [facility] mgmt - Plan cont current plan of care, continue antibiotics, PT/OT, secondary social studies teacher, respiratory therapy, out of bed/ambulate * . [facility] ready for discahrge. discussed with patient and case management
--- NOTE | 2018-01-13 13:28 | PRG ---
DATE OF SERVICE: 01/13/2018 SERVICE: Pulmonary Medicine. INTERVAL HISTORY: The patient is doing fine from a respiratory standpoint. Her cough persists. That being said, it is less severe than it was previously. She denies any current fevers, chills, nausea, vomiting or chest discomfort outside when she is coughing. When she does cough, she feels a pull inside of her chest. PHYSICAL EXAMINATION: VITAL SIGNS: Afebrile, pulse 106, blood pressure 109/75, respirations 18, saturation 92% now on room air again. HEART: Normal rate, regular. ABDOMEN: Soft, nontender, nondistended. Bowel sounds are positive. LUNGS: Excellent air entry. Crackles are present in bilateral lung cruz. MUSCULOSKELETAL: No cyanosis or clubbing. There is no pitting in the bilateral lower extremities. NEUROLOGIC: Grossly nonfocal. LABORATORY DATA: WBC 18.1, hemoglobin 11.8, platelets 229,000. Basic metabolic profile is completely unremarkable. Magnesium 2.1. HIV 1 and 2 are nonreactive. Respiratory virus PCR is growing parainfluenza 4. ASSESSMENT: 1. Acute hypoxic respiratory failure, once again resolved. 2. Interstitial lung disease secondary to systemic lupus erythematosus and rheumatoid arthritis. 3. Acute bronchitis, secondary to parainfluenza 4. 4. Recent immunosuppressed state. DISCUSSION AND PLAN: The T-spot is currently pending. HIV is unremarkable. We have identified parainfluenza virus, which can make a more severe reaction in patients who have compromised immune systems. I am going to decrease her prednisone to 20 mg p.o. daily and hope that she does not have recrudescence in her inflammatory lung disease. I will follow up with her in clinic in 2-4 weeks in the outpatient setting. I will continue to follow her while she remains in house. I would like to see the results of the T spot. She is not able to generate a good sample of sputum. As such, the AFB smear and culture have yet to be collected. MAYRA
[2018-01-13] MEDS: Azithromycin 500 MG in Sodium Chloride 0.9% 250 ML 250 ML IVPB SCH ×2 (18:21→19:06)
[2018-01-13] MEDS: Azithromycin 250 MG TAB PO SCH (20:51)
[2018-01-14] MEDS: HYDROcodone/Acetaminophen 5/325 mg Tablet PO PRN ×2 (05:21→21:40)
[2018-01-14] MEDS: diphenhydrAMINE 25 MG CAP PO PRN ×2 (05:21→21:39)
[2018-01-14] MEDS: Enoxaparin Sodium 40 MG/0.4 ML SYRINGE SC SCH (09:47)
[2018-01-14] MEDS: predniSONE 20 MG TAB PO SCH (09:47)
[2018-01-14] MEDS: guaiFENesin ER 600 MG TAB PO SCH ×2 (09:47→21:40)
--- NOTE | 2018-01-14 11:14 | PDOC.PN ---
- Subjective Encounter Start Date: 01/14/18 Encounter Start Time: 10:10 Pt feeling better, seen earlier by Dr Nieves, notes reviewed, appreciate his assistance. Pt positive for Paraflu 4. steroids decreased yesterday to allow her immune system to help. TSPOT pending, HIV neg. Pt feels better today, no F/C, no N/V/D/c, more time between coughing paroxysms. no sputum, no hemoptysis, still on RA for >24 hours. All systems reviewed adn neg x as per HPI above - Objective Resuscitation Status: Resuscitation Status FULL:Full Resuscitation MAR Reviewed: Yes Vital Signs & Weight: Vital Signs (12 hours) Temp Pulse Resp BP Pulse Ox 01/14/18 10:59 98.6 F 119 H 20 94/58 L 96 01/14/18 08:55 98.3 F 105 H 16 97/64 95 01/14/18 08:00 98.3 F 105 H 16 95 01/14/18 06:51 90 14 01/13/18 23:21 94 16 94 L Weight Weight 130 lb 1 oz I&O: 01/13/18 01/14/18 01/15/18 06:59 06:59 06:59 Intake Total 2580 1060 Balance 2580 1060 Result Diagrams: 01/13/18 05:01 01/13/18 05:01 Phys Exam - Physical Examination Constitutional: NAD HEENT: PERRLA, moist MMs, sclera anicteric, oral pharynx no lesions Neck: no nodes, no JVD, supple, full ROM Respiratory: no wheezing, no rhonchi, clear to auscultation bilateral fine bibasilar rales Cardiovascular: no significant murmur, no rub tachy, regular Gastrointestinal: soft, non-tender, no distention, positive bowel sounds Musculoskeletal: no edema, pulses present Neurological: non-focal, normal sensation, moves all 4 limbs Lymphatic: no nodes Psychiatric: normal affect, A&O x 3 Skin: no rash, normal turgor, cap refill <2 seconds Dx/Plan (1) Acute respiratory failure with hypoxemia Code(s): J96.01 - ACUTE RESPIRATORY FAILURE WITH HYPOXIA Status: Acute Comment: decrease nebs, wean O2 as tolerated. on solumedrol. po prednisone. Follow up on pulm recommendations. anticipate d/C tomorrow (2) Interstitial lung disease Code(s): J84.9 - INTERSTITIAL PULMONARY DISEASE, UNSPECIFIED Status: Chronic Comment: Continue Prednisone, will continue outpt work up including PFT's, add ProAir HFA 2puffs QID. follow up on TSPOT (3) Rheumatoid arthritis Code(s): M06.9 - RHEUMATOID ARTHRITIS, UNSPECIFIED Status: Chronic Qualifiers: Rheumatoid arthritis location: unspecified site Comment: steroids to taper now (4) SLE (systemic lupus erythematosus) Code(s): M32.9 - SYSTEMIC LUPUS ERYTHEMATOSUS, UNSPECIFIED Status: Chronic Qualifiers: Systemic lupus erythematosus type: unspecified Systemic lupus erythematosus organ involvement: unspecified Qualified Code(s): M32.9 - Systemic lupus erythematosus, unspecified Comment: See above for mgmt, outpt for [facility] mgmt - Plan cont current plan of care, continue antibiotics, respiratory therapy, out of bed /ambulate * .
--- NOTE | 2018-01-14 16:18 | PRG ---
DATE OF SERVICE: 01/14/2018 SERVICE: Pulmonary Medicine. INTERVAL HISTORY: The patient is doing fantastic from a cardiovascular and respiratory standpoint. She denies any current fevers, chills, nausea, vomiting or chest discomfort. Otherwise, there has be en no interval change to her condition. Her cough has much improved. She is generating less sputum. PHYSICAL EXAMINATION: VITAL SIGNS: Afebrile, pulse 119, blood pressure 194/58, respirations 20, saturation 96% on room air . GENERAL: The patient is awake, alert, no apparent distress. LUNGS: Excellent air entry with no prolonged expiratory phase, wheezing, rhonchi or crackles. HEART: Normal rate and regular. ABDOMEN: Soft, nontender, nondistended. Bowel sounds are positive. MUSCULOSKELETAL: No cyanosis or clubbing. No pitting in the bilateral lower extremities. NEUROLOGIC: Grossly nonfocal. LABORATORY DATA: WBC 18.1, hemoglobin 11.8 and platelets 299,000. D-dimer 1.22. Basic metabolic pr ofile is otherwise unremarkable. Respiratory virus culture is growing parainfluenza virus 4. ASSESSMENT: 1. Acute hypoxic respiratory failure, resolved. 2. Interstitial lung disease secondary to systemic lupus erythematosus and rheumatoid arthritis. 3. Acute bronchitis secondary to parainfluenza 4. 4. Recent immunosuppressed state. DISCUSSION AND PLAN: From my perspective, the patient is stable for transition out of the hospital. I would like for her to follow up with me in 2-4 weeks in the outpatient setting. At that point, we will look at her interstitial lung disease and continue prednisone taper through time. T-SPOT is cu rrently pending, but that certainly does not need to prevent her from being discharged from the [facility]. I will repeat a CBC in the morning to make certain her white blood cell count is trending in th e correct direction.
[2018-01-14] MEDS: Azithromycin 250 MG TAB PO SCH (21:39)
[2018-01-15 06:55] LABS: Lymphocytes 36 % (21-51); MDiff Complete? YES; Mean Corpuscular HGB CONC 32.6 g/dL (32.0-36.0); Mean Corpuscular Hemoglobin 30.3 pg (27.0-31.0); Mean Corpuscular Volume 92.8 fl (81.0-99.0); Mean Platelet Volume 6.8 fL (7.4-10.4); Monocytes 8 % (0-10); Neutrophil 55 % (42-75); Platelet Count 276 thou/uL (130-400); RBC Distribution Width 13.1 % (11.5-14.5); Reactive Lymphocytes 1 % (0-10); Red Blood Cell (RBC) Count 3.96 mill/uL (4.20-5.40); White Blood Cell (WBC) Count 13.9 thou/uL (4.8-10.8)
[2018-01-15] MEDS: Enoxaparin Sodium 40 MG/0.4 ML SYRINGE SC SCH (09:09)
[2018-01-15] MEDS: guaiFENesin ER 600 MG TAB PO SCH (09:09)
[2018-01-15] MEDS: predniSONE 20 MG TAB PO SCH (09:10)
[2018-01-15 11:11] VITALS: BP 99/66; TEMP 98.3
--- NOTE | 2018-01-15 13:47 | DIS ---
DATE OF ADMISSION 01/09/2018 DATE OF DISCHARGE: 01/15/2018 PRIMARY CARE PHYSICIAN: [facility]. DISCHARGE DIAGNOSES: 1. Pneumonia secondary to parainfluenza virus 4. 2. Acute exacerbation of chronic interstitial lung disease. 3. Chronic interstitial lung disease. 4. Rheumatoid arthritis. 5. Acute hypoxemic respiratory failure. 6. Systemic lupus erythematosus. CONSULTATION: Pulmonary Critical Care, Dr. Jose Nieves on 01/12/2018. PROCEDURES: None. HISTORY AND PHYSICAL: Ms. Bernard is a 47-year-old female who is currently incarcerated at the [facility]. She was brought to our Emergency Department for respiratory distress and coughing. She has recently been in the hospital on 12/25 after a similar episode and was discharged on Omnicef and pre dnisone 40 mg daily. She came back with recurrent shortness of breath to the point where she is havi ng post-tussive emesis and she was seen here. There, she was noted to have respiratory rate of 36, p ulse was 155. Oxygen saturation was actually normal. She had no fevers, chills or hemoptysis, but d id have some right-sided pleuritic type chest pain. We were subsequently consulted. HOSPITAL COURSE: The patient was seen and examined by Dr. Frey. Patient was started on Solu-Medrol and frequent nebs were ordered. Supplemental oxygen was available and she was admitted to inpatient . Overnight 01/09 to 01/10, cough was better with some Tessalon. The shortness of breath was improv ed and the chest pain had resolved. Labs remained fairly normal. It was noted by Dr. Frey that the patient will likely need outpatient Rheumatology consult when she returned back to her unit. She wa s continued on current management. On 01/11, I did take the case over. The patient had been placed on oxygen overnight due to increased respiratory issues. She had a cough that was nonproductive and looked uncomfortable. Heart rate wa s going from the 70s to the 120s. She is able to talk in full sentences, but looked very anxious. N o other acute events. White count jumped to 18,000 from the steroids and she was encouraged to get u p and ambulate. On 01/12, she had not improved. Dr. Jose Nieves had seen her during her previous hospitalization to see her. He saw her, requested a respiratory virus panel, QuantiFERON gold, and sputum cultures. She was ultimately able to induce some sputum. There was not enough for anything but the regular ro utine cultures, but the respiratory panel did come back positive for parainfluenza 4. He decided to decrease her steroids to 20 mg a day so as not to interfere with the immune systems handling of the v iral infection. From 01/12 to 01/15, she improved daily. She was taken off of the oxygen, her cough improved. She was able to go longer periods without coughing and was unable to produce any further sputum. T-SPOT was still pending at the time of discharge. PHYSICAL EXAMINATION: Patient was seen and examined on the day of discharge. DISCHARGE PLAN AND DISPOSITION: Discussed with the patient face to face at the bedside. DISCHARGE MEDICATIONS: 1. Albuterol sulfate HFA 2 puffs inhaled q.6 hours p.r.n. 2. Zithromax 500 mg p.o. daily for 4 more days. 3. Mucinex ER 1200 mg p.o. b.i.d. 4. DuoNebs 3 mL q.6 hours. 5. Iron tablet 36 mg daily. 6. Mobic 7.5 mg daily. 7. Zofran 4 mg p.o. q.6. hours p.r.n. nausea. 8. Protonix 40 mg daily. 9. Prednisone 20 mg p.o. q.a.m. until sees Dr. Nieves. FOLLOWUP APPOINTMENT: 1. Primary care physician at the [facility]. 2. Dr. Nieves in 2-3 weeks. DISCHARGE ACTIVITY: Per cardiopulmonary limits. DISCHARGE DIET: Heart healthy recommended. DISCHARGE CONDITION: Stable. DISCHARGE DISPOSITION: Patient is being transferred back to the [facility]
--- NOTE | 2018-01-15 17:15 | PRG ---
DATE OF SERVICE: 01/15/2018 SERVICE: Pulmonary Medicine. INTERVAL HISTORY: The patient is doing fine from a respiratory standpoint. Her cough improves day b y day. She still has a little bit of cough in the morning. It tends to clear as the day goes on. S he did not have any fevers or overnight events. The T-spot is currently pending. PHYSICAL EXAMINATION: VITAL SIGNS: Afebrile, pulse 116, blood pressure 99/66, respirations 18, saturation 94% on room air. GENERAL: The patient is awake, alert, no apparent distress. LUNGS: Excellent air entry with no prolonged expiratory phase, wheezing, rhonchi or crackles. HEART: Normal rate, regular. ABDOMEN: Soft, nontender, nondistended. Bowel sounds are positive. MUSCULOSKELETAL: No cyanosis or clubbing. There is no pitting in the bilateral lower extremities. NEUROLOGIC: Grossly nonfocal. LABORATORY DATA: WBC is beautifully down trending to 13.9, hemoglobin 12.0 and up trending. Platele ts 276,000. ASSESSMENT: 1. Acute hypoxic respiratory failure, resolved. 2. Interstitial lung disease secondary to systemic lupus erythematosus and rheumatoid arthritis. 3. Acute bronchitis secondary to parainfluenza 4. 4. Recent immunosuppressed state. DISCUSSION AND PLAN: The patient is stable for transition out of the hospital. She will continue he r prednisone 20 mg p.o. daily. However, return to clinic to see me in 2-4 weeks and will continue pr ednisone taper. Outpatient rheumatology consultation is currently pending.
== END 2018-01-15 11:31 | DRG 545 ==
LOC: EEVIPCON 12:31 → ERS 12:31 → T4-B 17:13
PROVIDERS: ADMIT Internal Medicine; ATTEND Internal Medicine
DX: M32.9 Systemic lupus erythematosus, unspecified (principal); J12.2 Parainfluenza virus pneumonia; J96.01 Acute respiratory failure with hypoxia; M06.9 Rheumatoid arthritis, unspecified; Z87.891 Personal history of nicotine dependence; Z87.442 Personal history of urinary calculi; J84.10 Pulmonary fibrosis, unspecified; J20.9 Acute bronchitis, unspecified
CPT/HCPCS: 36415; 71045; 71275; 80048; 80053; 82330; 82550; 82553; 82803; 83735; 83880; 84484; 85025; 85379; 86480; 87070; 87116; 87205; 87206; 87389; 87633; 87798; 93005; 93010; 94640; 96365; 96366; A4216; J0456; J1650; J2920; J3475; J7050; J7070; J7506; J7611; J7620; Q0162

== ENCOUNTER 2018-01-21 09:43 | Outpatient (CLI) | payer OTHER ==
--- NOTE | 2018-01-21 11:59 | RAD ---
CHEST 2 VIEWS: HISTORY: Dyspnea. COMPARISON: 01/11/18. FINDINGS: Stable cardiac silhouette. Lungs are hyperinflated. Chronic changes in the lung parenchyma. Lungs are hyperinflated. No suspicious masses or consolidation. No pneumothorax or osseous abnormalities. IMPRESSION: Hyperinflation. Chronic changes. POS: [facility]
== END 2018-01-21 09:44 | disposition home or self-care (01) ==
LOC: RAD 09:43
PROVIDERS: ATTEND Internal Medicine
DX: R06.00 Dyspnea, unspecified (principal); R91.8 Other nonspecific abnormal finding of lung field
CPT/HCPCS: 71046